=== PATIENT | male | born 1980 | race Caucasian/White ===

== ENCOUNTER → 2018-05-24 18:57 | Outpatient (CLI) | payer BC, SELFPAY ==
[2018-05-24 19:47] LABS: Amphetamine/Metha Screen,Urine Negative ng/mL (<1000); Barbiturates Screen,Urine Negative ng/mL (<200); Benzodiazepines Screen,Urine Negative ng/mL (<200); Cannabinoid Screen,Urine Negative ng/mL (<50); Cocaine Screen,Urine Negative ng/mL (<300); Methadone Screen,Urine Negative ng/mL (<300); Opiate Screen,Urine Positive ng/mL (<300); Phencyclidine Screen,Urine Negative ng/mL (<25)
== END ==
PROVIDERS: Visit Provider Nurse Practitioner Family
DX: Z79.899 Other long term (current) drug therapy (principal)
CPT/HCPCS: 80305

== ENCOUNTER → 2018-06-14 14:03 | Outpatient (CLI) | payer OTHER, BC, SELFPAY ==
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
== END ==
PROVIDERS: PCP Nurse Practitioner Family; Visit Provider Nurse Practitioner Family
DX: M54.6 Pain in thoracic spine (principal); M54.5 Low back pain; V89.2XXA Person injured in unspecified motor-vehicle accident, traffic, initial encounter
CPT/HCPCS: 72148; 76376

== ENCOUNTER 2018-09-02 15:30 | Outpatient (RCR) | payer BC, SELFPAY | END 2018-09-02 15:35 | disposition home or self-care (01) | LOC: PT 15:30 | PROVIDERS: Visit Provider Registered Nurse Critical Care Medicine | DX: S32.009A Unspecified fracture of unspecified lumbar vertebra, initial encounter for closed fracture (principal) | CPT/HCPCS: 97010; 97014; 97110; 97163; G0283 ==

== ENCOUNTER → 2018-09-06 13:16 | Outpatient (CLI) | payer BC, SELFPAY ==
[2018-09-06 14:22] LABS: Alanine Aminotransferase 36 U/L (12-78); Albumin/Globulin Ratio 1.2 (1.1-1.8); Alkaline Phosphatase 65 U/L (46-116); Anion Gap 14.9 mEq/L (5-15); Aspartate Amino Transferase 30 U/L (15-37); Bilirubin,Total 0.5 mg/dL (0.2-1.0); Blood Urea Nitrogen 17 mg/dL (7-18); Calcium 9.3 mg/dL (8.5-10.1); Carbon Dioxide 28 mmol/L (21.0-32.0); Chloride 105 mmol/L (98-107); Creatinine,Serum 1.11 mg/dL (0.70-1.30); Estimated Glomerular Filt Rate 74 ml/min (>60); GFR (African American) 90 ML/MIN (>60); Globulin 3.4 gm/dl (1.3-3.2); Glucose 101 mg/dL (74-106); Potassium 4.9 mmoL/L (3.5-5.1); Sodium 143 mmol/L (136-145); Total Protein,Serum 7.4 gm/dL (6.4-8.2)
[2018-09-06 14:43] LABS: Basophils % 0.5 % (0.1-2.0); Eosinophils # 0.1 K/mm3 (0.0-0.4); Hematocrit 45.5 % (42.0-52.0); Hemoglobin 15.2 g/dL (14.1-18.0); Lymphocytes # 2.8 K/mm3 (0.7-4.5); Lymphocytes % 32.8 % (10-50); Mean Corpuscular HGB Conc 33.4 g/dL (31.8-35.4); Mean Corpuscular Hemoglobin 30.9 pg (27.0-31.2); Mean Corpuscular Volume 92.3 fl (80-94); Mean Platelet Volume 7.6 fl (7.4-10.4); Monocytes # 0.5 K/mm3 (0.1-1.0); Monocytes % 6.1 % (1.7-9.3); Neutrophils # 5.1 K/mm3 (1.8-7.8); Neutrophils % 59.6 % (37.0-80.0); Platelet Count 316 K/mm3 (142-424); Red Blood Count 4.93 M/mm3 (4.60-6.20); Red Cell Distribution Width 13.8 % (11.5-17.5); White Blood Count 8.6 K/mm3 (4.8-10.8)
== END ==
PROVIDERS: Visit Provider Nurse Practitioner Acute Care
DX: B19.20 Unspecified viral hepatitis C without hepatic coma (principal); Z79.899 Other long term (current) drug therapy
CPT/HCPCS: 36415; 80053; 85025; 87522

== ENCOUNTER → 2018-10-09 15:02 | Outpatient (CLI) | payer BC, SELFPAY ==
[2018-10-09 15:25] LABS: Basophils # 0.1 K/mm3 (0-0.2); Basophils % 0.6 % (0.1-2.0); Eosinophils # 0.2 K/mm3 (0.0-0.4); Eosinophils % 1.9 % (0.1-12.0); Hematocrit 47.8 % (42.0-52.0); Hemoglobin 16.1 g/dL (14.1-18.0); Lymphocytes % 34.6 % (10-50); Mean Corpuscular HGB Conc 33.6 g/dL (31.8-35.4); Mean Corpuscular Hemoglobin 31.1 pg (27.0-31.2); Mean Corpuscular Volume 92.6 fl (80-94); Mean Platelet Volume 7.3 fl (7.4-10.4); Monocytes # 0.6 K/mm3 (0.1-1.0); Monocytes % 6.7 % (1.7-9.3); Neutrophils # 4.8 K/mm3 (1.8-7.8); Neutrophils % 56.1 % (37.0-80.0); Platelet Count 345 K/mm3 (142-424); Red Blood Count 5.17 M/mm3 (4.60-6.20); Red Cell Distribution Width 12.9 % (11.5-17.5); White Blood Count 8.6 K/mm3 (4.8-10.8)
[2018-10-09 15:32] LABS: INR 0.97 (0.9-1.1)
[2018-10-09 18:53] LABS: Alanine Aminotransferase 25 U/L (12-78); Albumin Level 4.3 gm/dL (3.4-5.0); Albumin/Globulin Ratio 1.2 (1.1-1.8); Alkaline Phosphatase 67 U/L (46-116); Anion Gap 8.9 mEq/L (5-15); Aspartate Amino Transferase 16 U/L (15-37); Bilirubin,Total 0.4 mg/dL (0.2-1.0); Blood Urea Nitrogen 17 mg/dL (7-18); Calcium 8.9 mg/dL (8.5-10.1); Carbon Dioxide 29 mmol/L (21.0-32.0); Chloride 102 mmol/L (98-107); Creatinine,Serum 1.07 mg/dL (0.70-1.30); Estimated Glomerular Filt Rate 77 ml/min (>60); GFR (African American) 94 ML/MIN (>60); Globulin 3.5 gm/dl (1.3-3.2); Glucose 133 mg/dL (74-106); Potassium 3.9 mmoL/L (3.5-5.1); Sodium 136 mmol/L (136-145); Total Protein,Serum 7.8 gm/dL (6.4-8.2)
[2018-10-12 14:08] LABS: HCV Genotype Charge YES
== END ==
PROVIDERS: Visit Provider Nurse Practitioner Acute Care
DX: B19.20 Unspecified viral hepatitis C without hepatic coma (principal); Z79.899 Other long term (current) drug therapy
CPT/HCPCS: 36415; 80053; 85025; 85610; 87522; 87902

== ENCOUNTER → 2018-11-25 15:08 | Outpatient (CLI) | payer BC, SELFPAY ==
--- NOTE | 2018-11-25 15:16 | XR_ITS ---
XR chest 2V HISTORY: ITS.REASON: cough ORDERING PHYSICIAN: Kelli Olguin APRN PATIENT AGE: 38 years COMPARISON: None FINDINGS: The cardiomediastinal silhouette and pulmonary vascularity are within normal limits. There is a 2 mm benign calcified granuloma in the left upper lobe. The remainder of the lung maldonado are clear.. Lateral view shows compression deformities with anterior wedging at T12, L1 and L2 levels. This is mild although somewhat moderate at the L1 level. There is no evidence of osseous vertebral canal encroachment. Bone density is relatively normal.. IMPRESSION: No acute lung process. Anterior wedge deformities at the thoracolumbar junction as discussed above.
[2018-11-25 16:22] LABS: Monoscreen (Rapid) Negative (Negative)
[2018-11-25 17:42] LABS: Chol/HDL Ratio 4.3 (1-3.5); Cholesterol 299 mg/dL (140-200); Free T4 (Free Thyroxine) 0.99 ng/dl (0.76-1.46); HDL Cholesterol 69 mg/dL (27-67); LDL Cholesterol 192 mg/dL (0-130); Thyroid Stimulating Hormone 1.77 uIU/ml (0.358-3.740); Triglycerides 188 mg/dL (30-200); VLDL Cholesterol 38 mg/dL (0-40)
[2018-11-25 18:17] LABS: Hemoglobin A1C 5.8 % (0.0-7.0)
[2018-11-27 17:45] LABS: Vitamin D 25 Hydroxy 33.6 ng/mL (30.0-100.0)
== END ==
PROVIDERS: PCP Nurse Practitioner Family; Visit Provider Nurse Practitioner Family
DX: F17.200 Nicotine dependence, unspecified, uncomplicated (principal); R53.1 Weakness; R53.83 Other fatigue; R73.9 Hyperglycemia, unspecified
CPT/HCPCS: 36415; 71046; 80061; 82652; 83036; 84439; 84443; 84481; 86318

== ENCOUNTER → 2018-12-31 15:20 | Outpatient (CLI) | payer BC, SELFPAY ==
[2018-12-31 16:18] LABS: Basophils # 0.1 K/mm3 (0-0.2); Basophils % 0.7 % (0.1-2.0); Eosinophils # 0.1 K/mm3 (0.0-0.4); Eosinophils % 1.3 % (0.1-12.0); Hematocrit 44.1 % (42.0-52.0); Hemoglobin 14.2 g/dL (14.1-18.0); Lymphocytes # 2.5 K/mm3 (0.7-4.5); Lymphocytes % 29.8 % (10-50); Mean Corpuscular HGB Conc 32.2 g/dL (31.8-35.4); Mean Corpuscular Hemoglobin 31.2 pg (27.0-31.2); Mean Corpuscular Volume 96.9 fl (80-94); Mean Platelet Volume 7.1 fl (7.4-10.4); Monocytes # 0.5 K/mm3 (0.1-1.0); Monocytes % 5.7 % (1.7-9.3); Neutrophils # 5.2 K/mm3 (1.8-7.8); Neutrophils % 62.4 % (37.0-80.0); Platelet Count 371 K/mm3 (142-424); Red Blood Count 4.55 M/mm3 (4.60-6.20); Red Cell Distribution Width 14.7 % (11.5-17.5); White Blood Count 8.4 K/mm3 (4.8-10.8)
[2018-12-31 18:49] LABS: Alanine Aminotransferase 33 U/L (12-78); Albumin/Globulin Ratio 1.3 (1.1-1.8); Alkaline Phosphatase 62 U/L (46-116); Anion Gap 14.9 mEq/L (5-15); Aspartate Amino Transferase 23 U/L (15-37); Bilirubin,Total 0.6 mg/dL (0.2-1.0); Blood Urea Nitrogen 9 mg/dL (7-18); Calcium 9.2 mg/dL (8.5-10.1); Carbon Dioxide 26 mmol/L (21.0-32.0); Chloride 106 mmol/L (98-107); Creatinine,Serum 1.04 mg/dL (0.70-1.30); Estimated Glomerular Filt Rate 80 ml/min (>60); GFR (African American) 97 ML/MIN (>60); Globulin 3.2 gm/dl (1.3-3.2); Glucose 87 mg/dL (74-106); Potassium 4.9 mmoL/L (3.5-5.1); Sodium 142 mmol/L (136-145); Total Protein,Serum 7.2 gm/dL (6.4-8.2)
== END ==
PROVIDERS: Visit Provider Nurse Practitioner Acute Care
DX: B19.20 Unspecified viral hepatitis C without hepatic coma (principal); Z79.899 Other long term (current) drug therapy
CPT/HCPCS: 36415; 80053; 85025; 87522

== ENCOUNTER → 2020-06-23 14:38 | Outpatient (CLI) | payer BC, SELFPAY ==
[2020-06-23 16:28] LABS: Basophils # 0.1 K/mm3 (0-0.2); Basophils % 0.7 % (0.1-2.0); Eosinophils # 0.2 K/mm3 (0.0-0.4); Eosinophils % 1.9 % (0.1-12.0); Hemoglobin 15.3 g/dL (14.1-18.0); Lymphocytes # 3.2 K/mm3 (0.7-4.5); Lymphocytes % 31.3 % (10-50); Mean Corpuscular HGB Conc 33.3 g/dL (31.8-35.4); Mean Corpuscular Hemoglobin 30.2 pg (27.0-31.2); Mean Corpuscular Volume 90.5 fl (80-94); Mean Platelet Volume 7.7 fl (7.4-10.4); Monocytes # 0.5 K/mm3 (0.1-1.0); Monocytes % 5.3 % (1.7-9.3); Neutrophils # 6.2 K/mm3 (1.8-7.8); Neutrophils % 60.9 % (37.0-80.0); Platelet Count 381 K/mm3 (142-424); Red Blood Count 5.08 M/mm3 (4.60-6.20); Red Cell Distribution Width 13.9 % (11.5-17.5); White Blood Count 10.2 K/mm3 (4.8-10.8)
[2020-06-23 16:52] LABS: Alanine Aminotransferase 62 U/L (12-78); Albumin Level 4.7 g/dl (3.5-5.0); Albumin/Globulin Ratio 1.5 (1.1-1.8); Alkaline Phosphatase 68 U/L (38-126); Anion Gap 12.7 mEq/L (5-15); Aspartate Amino Transferase 48 U/L (17-59); Bilirubin,Total 0.5 mg/dl (0.2-1.3); Blood Urea Nitrogen 22 mg/dl (9-20); Calcium 9.8 mg/dl (8.4-10.2); Carbon Dioxide 28 mmol/L (22.0-30.0); Chloride 103 mmol/L (98-107); Estimated Glomerular Filt Rate 83 ml/min (>60); GFR (African American) 100 ML/MIN (>60); Globulin 3.1 g/dL (1.3-3.2); Glucose 91 mg/dl (74-100); Potassium 4.7 mmoL/L (3.5-5.1); Sodium 139 mmol/L (136-145); Total Protein,Serum 7.8 g/dl (6.3-8.2)
[2020-06-23 17:00] LABS: INR 0.96 (0.9-1.1); Prothrombin Time 10.7 seconds (9.4-11.8)
[2020-06-23 17:05] LABS: Barbiturates Screen,Urine Negative ng/ml (<200); Benzodiazepines Screen,Urine Negative ng/ml (<200)
[2020-06-23 17:06] LABS: Amphetamine/Metha Screen,Urine Negative ng/ml (<1000); Methadone Screen,Urine Negative ng/ml (<300)
[2020-06-23 17:07] LABS: Cannabinoid Screen,Urine Negative ng/ml (<50)
[2020-06-23 17:08] LABS: Cocaine Screen,Urine Negative ng/ml (<300); Opiate Screen,Urine Negative ng/ml (<300)
[2020-06-23 17:09] LABS: Phencyclidine Screen,Urine Negative ng/ml (<25)
[2020-06-25 09:54] LABS: Hep A Ab, Total Positive (Negative); Hep B Core Ab, Total Negative (Negative); Hepatitis B Surface Antigen Negative (Negative)
[2020-06-25 11:33] LABS: HIV Screen 4th Generation wRfx Non Reactive (Non Reactive)
[2020-06-25 11:34] LABS: Hep B Surface Ab, Qual Reactive (.); Hepatitis B Core Antibody IgM Negative (Negative)
[2020-06-26 22:11] LABS: Hepatitis C Genotype 2b (.)
[2020-06-29 00:07] LABS: ALT (SGPT) P5P 62 IU/L (0-55); Alpha 2-Macroglobulins, Qn 162 mg/dL (110-276); Apolipoprotein A-1 123 mg/dL (101-178); Bilirubin, Total 0.2 mg/dL (0.0-1.2); Fibrosis Score 0.06 (0.00-0.21); GGT 20 IU/L (0-65); Haptoglobin 185 mg/dL (17-317); Necroinflammat Activity Grade A0-A1 (.); Necroinflammat Activity Score 0.29 (0.00-0.17)
== END ==
PROVIDERS: Visit Provider Nurse Practitioner Acute Care
DX: B19.20 Unspecified viral hepatitis C without hepatic coma (principal)
CPT/HCPCS: 36415; 80053; 80305; 81596; 85025; 85610; 86703; 86704; 86706; 86708; 87340; 87522; 87902; G0432

== ENCOUNTER → 2020-07-08 07:59 | Outpatient (CLI) | payer BC, SELFPAY ==
--- NOTE | 2020-07-08 08:04 | US_ITS ---
PROCEDURE: US LIVER CLINICAL INDICATION: HEPATITIS C COMPARISON: No exams were available for comparison FINDINGS: PANCREAS: Unremarkable. No obvious mass or abnormal fluid collection. No ductal dilatation LIVER: No focal liver lesions demonstrated. Homogeneous echogenicity. No intrahepatic biliary ductal dilatation evident. There is appropriate direction of blood flow within a non dilated portal vein RIGHT KIDNEY: Unremarkable. Normal size and echogenicity. No hydronephrosis GALLBLADDER: There is a small hyperechoic focus in the fundus of the gallbladder at 8 2 mm. This is nonshadowing and could represent a nonshadowing stone or small polyp. A small focus of sludge is also consideration. IMPRESSION: Small hyperechoic focus in the fundus of the gallbladder which could represent a nonshadowing adherent stone or polyp or small area of sludge otherwise negative Dictated by: Julio Cesar Johnson MD 07/08/2020 17:50 Julio Cesar Johnson MD in [place] 07/08/2020 17:50
== END ==
PROVIDERS: PCP Emergency Medicine; Visit Provider Nurse Practitioner Acute Care
DX: B19.20 Unspecified viral hepatitis C without hepatic coma (principal)
CPT/HCPCS: 76705

== ENCOUNTER → 2020-08-27 12:31 | Outpatient (CLI) | payer BC, SELFPAY ==
[2020-08-27 12:57] LABS: Basophils % 0.4 % (0.1-2.0); Eosinophils # 0.1 K/mm3 (0.0-0.4); Eosinophils % 1.1 % (0.1-12.0); Hematocrit 44.6 % (42.0-52.0); Hemoglobin 14.9 g/dL (14.1-18.0); Lymphocytes # 2.7 K/mm3 (0.7-4.5); Lymphocytes % 26.3 % (10-50); Mean Corpuscular HGB Conc 33.3 g/dL (31.8-35.4); Mean Corpuscular Hemoglobin 30.5 pg (27.0-31.2); Mean Corpuscular Volume 91.6 fl (80-94); Mean Platelet Volume 7.7 fl (7.4-10.4); Monocytes # 0.4 K/mm3 (0.1-1.0); Monocytes % 3.8 % (1.7-9.3); Neutrophils % 68.3 % (37.0-80.0); Platelet Count 397 K/mm3 (142-424); Red Blood Count 4.87 M/mm3 (4.60-6.20); Red Cell Distribution Width 13.5 % (11.5-17.5); White Blood Count 10.2 K/mm3 (4.8-10.8)
[2020-08-27 13:45] LABS: INR 0.93 (0.9-1.1)
[2020-08-27 13:52] LABS: Alanine Aminotransferase 18 U/L (12-78); Albumin Level 4.7 g/dl (3.5-5.0); Alkaline Phosphatase 55 U/L (38-126); Anion Gap 13.4 mEq/L (5-15); Aspartate Amino Transferase 30 U/L (17-59); Bilirubin,Total 0.4 mg/dl (0.2-1.3); Blood Urea Nitrogen 17 mg/dl (9-20); Calcium 9.5 mg/dl (8.4-10.2); Carbon Dioxide 25 mmol/L (22.0-30.0); Chloride 105 mmol/L (98-107); Estimated Glomerular Filt Rate 107 ml/min (>60); GFR (African American) 130 ML/MIN (>60); Globulin 2.4 g/dL (1.3-3.2); Glucose 103 mg/dl (74-100); Potassium 4.4 mmoL/L (3.5-5.1); Sodium 139 mmol/L (136-145); Total Protein,Serum 7.1 g/dl (6.3-8.2)
== END ==
PROVIDERS: Visit Provider Nurse Practitioner Acute Care
DX: B19.20 Unspecified viral hepatitis C without hepatic coma (principal)
CPT/HCPCS: 36415; 80053; 85025; 85610; 87522

== ENCOUNTER 2020-12-20 04:04 | Emergency (ER) | payer BC, SELFPAY ==
[2020-12-20] VITALS (10 sets, daily range): BP systolic 93–119; BP diastolic 56–75; PULSE 71–114; RESP 13–24; TEMP 36.6; O2SAT 96–100; BMI 23.6
--- NOTE | 2020-12-20 04:02 | ECG_ITS ---
APPROVED REPORT Exam: Resting ECG HR:118 bpm ECG Measurements Heart Rate [address] 126 P 64 QRSd 80 QRS 65 QT 340 T 49 QTc 476 Conclusion Sinus tachycardia STTW changes - ? rate effct Abnormal ECG Electronically signed by : Duane Curry, 12/20/2020 22:10:31
--- NOTE | 2020-12-20 04:10 | XR_ITS ---
PROCEDURE INFORMATION: Exam: XR Chest Exam date and time: 12/20/2020 4:10 AM Age: 40 years old Clinical indication: Other: Overdose TECHNIQUE: Imaging protocol: XR of the chest. Views: 2 views. COMPARISON: CR (CHEST PA, CHEST, CHEST PA) 11/25/2018 3:18 PM FINDINGS: Lungs: Unremarkable. No consolidation. Pleural spaces: Unremarkable. No pleural effusion. No pneumothorax. Heart/Mediastinum: Unremarkable. No cardiomegaly. Bones/joints: Unremarkable. IMPRESSION: No acute findings.
--- NOTE | 2020-12-20 04:47 | PC.NURSE ---
Pt is restroom for an extended period of time. chest xray and v/s delayed. checked on pt periodically.
--- NOTE | 2020-12-20 04:51 | PC.NURSE ---
pt to rad.
[2020-12-20 04:55] LABS: Alanine Aminotransferase 27 U/L (12-78); Albumin Level 4.9 g/dl (3.5-5.0); Albumin/Globulin Ratio 1.8 (1.1-1.8); Alkaline Phosphatase 65 U/L (38-126); Anion Gap 19.6 mEq/L (5-15); Aspartate Amino Transferase 43 U/L (17-59); Bilirubin,Total 0.9 mg/dl (0.2-1.3); Blood Urea Nitrogen 18 mg/dl (9-20); Calcium 9.6 mg/dl (8.4-10.2); Carbon Dioxide 23 mmol/L (22.0-30.0); Chloride 101 mmol/L (98-107); Creatinine Clearance Estimated 74 mL/min (50-200); Estimated Glomerular Filt Rate 56 ml/min (>60); GFR (African American) 68 ML/MIN (>60); Globulin 2.8 g/dL (1.3-3.2); Glucose 157 mg/dl (74-100); Potassium 3.6 mmoL/L (3.5-5.1); Sodium 140 mmol/L (136-145); Total Protein,Serum 7.7 g/dl (6.3-8.2)
--- NOTE | 2020-12-20 04:55 | PC.NURSE ---
pt returned from rad
[2020-12-20 05:02] LABS: Basophils # 0.1 K/mm3 (0-0.2); Eosinophils # 0.1 K/mm3 (0.0-0.4); Eosinophils % 0.5 % (0.1-12.0); Lymphocytes # 3.1 K/mm3 (0.7-4.5); Monocytes # 0.4 K/mm3 (0.1-1.0); Neutrophils # 12.3 K/mm3 (1.8-7.8); White Blood Count 15.9 K/mm3 (4.8-10.8)
[2020-12-20 05:06] LABS: Acetaminophen < 10 ug/ml (10-30); Ethyl Alcohol < 10 mg/dl (0-10); Salicylate < 1.0 mg/dL (2.0-20.0)
[2020-12-20 05:07] LABS: Basophils % 0.9 % (0.1-2.0); Hematocrit 57.7 % (42.0-52.0); Hemoglobin 19.2 g/dL (14.1-18.0); Lymphocytes % 19.4 % (10-50); Mean Corpuscular HGB Conc 33.3 g/dL (31.8-35.4); Mean Corpuscular Hemoglobin 31.1 pg (27.0-31.2); Mean Corpuscular Volume 93.2 fl (80-94); Monocytes % 2.2 % (1.7-9.3); Platelet Count 337 K/mm3 (142-424); Red Blood Count 6.19 M/mm3 (4.60-6.20); Red Cell Distribution Width 13.5 % (11.5-17.5)
[2020-12-20 05:08] LABS: MANUAL DIFFERENTIAL MANUAL DIFFERENTIAL (MANUAL DIFF)
[2020-12-20 05:16] LABS: Troponin I 0.03 ng/ml (0.00-0.034)
[2020-12-20 05:22] LABS: Procalcitonin 0.482 ng/mL (0.0-2.0)
[2020-12-20 05:27] LABS: Lymphocytes % 20 % (10-50); Monocytes % 3 % (2-9); Neutrophils % 76 % (42-76); Platelet Estimate Normal; Spherocytes 3+; Total Cells Counted 100
[2020-12-20 05:33] LABS: Erythrocyte Sedimentation Rate 3 mm/hr (0-15)
[2020-12-20 05:43] LABS: Lactic Acid 3.5 mmol/L (0.7-2.1)
--- NOTE | 2020-12-20 06:44 | HMH.EDOD ---
ED Disposition Condition on Discharge: Good - Critical Care Critical Care Time: No <Esau Cazares S - Last Filed: 12/20/20 08:08> <Manfred Mccormick - Last Filed: 12/20/20 08:54> Clinical Impression: IVDU (intravenous drug user) Dyspnea Qualifiers: Dyspnea type: shortness of breath Qualified Code(s): R06.02 - Shortness of breath Disposition: Home, Self-Care Instructions: DI for Drug Overdose in Adults Referrals: Provider,Referral, MD [Primary Care Provider] - Attestation: On 12/20/20, the high probability of a clinically significant, sudden or life threatening deterioration of the following system(s) required my full and direct attention, intervention and personal management. The time I documented below is in addition to time spent performing reported procedures but includes the following listed in this critical care notation. Medical Decision Making - Medical Records Medical records reviewed: Yes: I reviewed the patient's medical records. - Maurisio Inquiry Pt receiving controlled substance: No - Lab Data Lab results reviewed: Yes: I reviewed the patient's lab results. Result diagrams: 12/20/20 04:30 12/20/20 04:30 - Radiology Data #1 Image(s): Chest Image Reviewed: Yes I reviewed the patient's radiology image Preliminary Findings: Normal/NAD - ECG Data Tracing #1 Normal Sinus Rhythm: Yes Ischemic changes: non-specific ST-T wave changes <Esau Cazares - Last Filed: 12/20/20 08:08> - Lab Data Result diagrams: 12/20/20 04:30 12/20/20 04:30 <Manfred Mccormick - Last Filed: 12/20/20 08:54> Vital Signs: 12/20/20 04:05 12/20/20 04:12 12/20/20 05:04 Temperature 97.9 F Temperature Source Oral Pulse Rate 107 H 107 H Pulse Rate [Right] 114 H Respiratory Rate 17 24 15 Blood Pressure 93/56 L 109/70 L Blood Pressure [Right Arm] 93/56 L Blood Pressure Mean Blood Pressure Mean [Right Arm] 68 Blood Pressure Source [Right Arm] Automatic Cuff 02 Sat by Pulse Oximetry 96 97 100 Oxygen Delivery Method Room Air 12/20/20 05:30 12/20/20 06:00 12/20/20 06:30 Temperature Temperature Source Pulse Rate 98 H 96 H 91 H Pulse Rate [Right] Respiratory Rate 17 24 22 Blood Pressure 115/70 118/69 114/70 Blood Pressure [Right Arm] Blood Pressure Mean 86 Blood Pressure Mean [Right Arm] Blood Pressure Source [Right Arm] 02 Sat by Pulse Oximetry 98 96 Oxygen Delivery Method - Lab Data Lab Results 12/20/20 04:30: WBC 15.9 H, RBC 6.19, Hgb 19.2 H*, Hct 57.7 H, MCV 93.2, MCH 31.1, MCHC 33.3, RDW 13.5, Plt Count 337, MPV 8.0, Neut % (Auto) 77.0, Lymph % (Auto) 19.4, Dolores % (Auto) 2.2, Eos % (Auto) 0.5, Baso % (Auto) 0.9, Neut # (Auto) 12.3 H, Lymph # (Auto) 3.1, Dolores # (Auto) 0.4, Eos # (Auto) 0.1, Baso # (Auto) 0.1, Total Counted 100, Neutrophils % (Manual) 76, Band Neutrophils % 1.0, Lymphocytes % (Manual) 20, Monocytes % (Manual) 3, Platelet Estimate Normal, Spherocytes 3+, ESR 3 12/20/20 04:30: Sodium 140, Potassium 3.6, Chloride 101, Carbon Dioxide 23, Anion Gap 19.6 H, BUN 18, Creatinine 1.40 H, Estimated Creat Clear 74, Estimated GFR 56 L, Est GFR ( Amer) 68, Glucose 157 H, Calcium 9.6, Total Bilirubin 0.9, AST 43, ALT 27, Alkaline Phosphatase 65, Total Protein 7.7, Albumin 4.9, Globulin 2.8, Albumin/Globulin Ratio 1.8 12/20/20 04:30: Troponin I 0.03, Salicylates < 1.0 L, Acetaminophen < 10 L 12/20/20 04:30: Plasma/Serum Alcohol < 10 12/20/20 04:30: Procalcitonin 0.482 12/20/20 05:05: Lactate 3.5 H 12/20/20 : SARS-CoV-2 (PCR) Not detected, Influenza A Untype (PCR) Not detected, Influenza Type B (PCR) Not detected Orders (Tests/Meds): ED MEDICATIONS Discontinued Medications Generic Name Dose Route Start Last Admin Trade Name Freq PRN Reason Stop Dose Admin Sodium Chloride 1,000 mls @ 999 mls/hr 12/20/20 05:00 12/20/20 04:50 Sod Chlor 0.9% 1000ml Bag IV 12/20/20 06:00 999 mls/hr .Q1H1M SAMUEL Administration Sodium Chlori
--- NOTE | 2020-12-20 06:45 | CT_ITS ---
PROCEDURE INFORMATION: Exam: CTA Chest With Contrast Exam date and time: 12/20/2020 6:45 AM Age: 40 years old Clinical indication: Pain; On breathing; Additional info: SOA post ivdu TECHNIQUE: Imaging protocol: Computed tomographic angiography of the chest with contrast. 3D rendering (Not supervised by radiologist): MIP and/or 3D reconstructed images were created by the technologist. Radiation optimization: All CT scans at this facility use at least one of these dose optimization techniques: automated exposure control; mA and/or kV adjustment per patient size (includes targeted exams where dose is matched to clinical indication); or iterative reconstruction. Contrast material: ISOVUE; Contrast volume: 75 ml; Contrast route: INTRAVENOUS (IV); COMPARISON: CR XR CHEST 2V 12/20/2020 4:44 AM FINDINGS: Pulmonary arteries: There is no convincing evidence of a pulmonary embolus. Aorta: There is no aortic aneurysm or dissection. Lungs: There is mild dependent atelectasis but no lobar consolidation. The central airway is clear. Pleural spaces: Unremarkable. No pneumothorax. No pleural effusion. Heart: The cardiac chambers are normal in size but there is a trace pericardial effusion. Lymph nodes: There are a few tiny calcified lymph nodes in the left hilum and there is a small calcified left upper lobe pulmonary nodule consistent with remote granulomatous disease. Liver: Mild hepatic steatosis. Bones/joints: No acute findings seen in the upper abdomen. The bones are grossly intact. Soft tissues: Unremarkable. IMPRESSION: 1. No convincing evidence of a significant pulmonary embolus. 2. Trace pericardial effusion. 3. Hepatic steatosis.
--- NOTE | 2020-12-20 07:02 | PC.NURSE ---
PT TO CT SCAN
--- NOTE | 2020-12-20 07:04 | PC.NURSE ---
pt to rad.
--- NOTE | 2020-12-20 07:31 | CA_ITS ---
APPROVED REPORT EXAM: Comprehensive 2D, Doppler, and color-flow Echocardiogram Erp Consultant: Felicia Fernandes RVT Ht: 5 ft 10 in Wt: 165lbs BSA: 1.92 BP: 114/70 mmHg Indications: OD,IV DRUG USE(METH),SOA,SMOKER 2D Dimensions LVOT 2.06 cm (M/F) 1.5-2.5 LA Volume 27.70 mL LA Volume Index 14.42 mL/m2 (M/F) 16-34 M-Mode Dimensions RVDd 3.33 cm (0.9-2.6) LA Diam 3.07 cm (1.9-4.0) LVDd 4.18 cm (3.5-5.7) Ao Diam 3.41 cm (2.0-3.7) LVDs 2.97 cm (3.5-5.7) IVSd 1.39 cm (0.6-1.1) PWd 0.68 cm (0.6-1.1) EF (Teich) 56.00% FS 28.90% EDV (Teich) 77.70 mL TAPSE 2.14 (<1.7) ESV (Teich) 34.20 mL LV Diastology E Decel Time 190.00 (160-240 msec) E/A Ratio 0.7 MED E' 10.80 (< 7 cm/sec) E'/MED E' Ratio 4.23 (>14) LAT E' 11.30 (<10 cm/sec) E/LAT E' Ratio 4.04 (>14) Aortic Valve AO Peak GR. 3.20 mmHg Mitral Valve MV E Max Damon. 46.00 (40-130 cm/s) MV A Velocity 63.00 (40-130 cm/s) E/A Ratio 0.73 MV Decel. Time 190.00 (160-240 ms) MV PHT 56.00 ms Pulmonary Valve PV Peak Velocity 85.00 (50-150 cm/s) Tricuspid Valve TR P. Velocity 215.00 cm/s RAP Estimate 10.00 mmHg RVSP 28.50 mmHg Left Ventricle Left atrium is mildly enlarged, left ventricle is normal size, there is no concentric left ventricular hypertrophy, visually estimated ejection fraction 55% with no regional wall motion abnormality, Doppler evidence of impaired LV relaxation seen. Tissue Doppler is inconclusive Right Ventricle Right atrium and right ventricle is mildly enlarged with normal contractility. Aortic Valve Aortic valve is minimally thickened and fibrosed there is no aortic stenosis or aortic insufficiency. Mitral Valve Mitral valve grossly normal, there is trace mitral regurgitation. Tricuspid Valve Tricuspid valve grossly normal, there is trace tricuspid regurgitation, tricuspid regurgitation jet velocity is inadequate for calculation of the right ventricular systolic pressure. Pulmonic Valve Pulmonic valve is poorly visualized. Great Vessels Aortic root is normal size. Pericardium No significant pericardial effusion noted. Conclusion 1. Mild biatrial enlargement, normal left ventricular size, visually estimated ejection fraction 55% with no regional wall motion abnormality, Doppler evidence of impaired LV relaxation seen. 2. Mildly enlarged right ventricle with normal contractility. 3. Trace mitral and tricuspid regurgitation. 4. No significant pericardial effusion noted. Electronically signed by : Jacob Cody, 12/20/2020 08:44:39
--- NOTE | 2020-12-20 07:33 | PC.NURSE ---
notified CV lab of echo, spoke with miguel
[2020-12-20 07:36] LABS: Coronavirus 19, PCR Not Detected (NotDetected); Influenza A, PCR Not Detected (NotDetected); Influenza B, PCR Not Detected (NotDetected)
--- NOTE | 2020-12-20 07:43 | PC.NURSE ---
CV lab staff at for echo
[2020-12-20 08:52] LABS: Troponin I 0.15 ng/ml (0.00-0.034)
--- NOTE | 2020-12-20 09:01 | PC.NURSE ---
pt being D/C with brother and mother , they have arranged pt to go straight to [facility]
[2020-12-20 09:34] LABS: Reflex Lactic Add Lactic Reflex
== END 2020-12-20 09:18 | disposition home or self-care (01) ==
PROVIDERS: Emergency Medicine; Emergency Provider Student in an Organized Health Care Education/Training Program
DX: T43.621A Poisoning by amphetamines, accidental (unintentional), initial encounter (principal); R06.02 Shortness of breath; Y92.019 Unspecified place in single-family (private) house as the place of occurrence of the external cause; Z88.0 Allergy status to penicillin; Z88.2 Allergy status to sulfonamides; F17.210 Nicotine dependence, cigarettes, uncomplicated
CPT/HCPCS: 36415; 71046; 71275; 80053; 80329; 83605; 84145; 84484; 85007; 85025; 85651; 87040; 93005; 93306; 96365; 96366; 99284; Q9967; U0003

== ENCOUNTER 2023-10-22 13:31 | Outpatient (CLI) | payer BC, SELFPAY ==
[2023-10-22 20:42] LABS: Basophils % 0.6 % (0.1-2.0); Eosinophils % 0.4 % (0.1-12.0); Hematocrit 46.8 % (42.0-52.0); Lymphocytes # 0.7 K/mm3 (0.7-4.5); Lymphocytes % 12.7 % (10-50); Mean Corpuscular HGB Conc 32.1 g/dL (31.8-35.4); Mean Corpuscular Hemoglobin 29.6 pg (27.0-31.2); Mean Corpuscular Volume 92.1 fl (80-94); Mean Platelet Volume 8.9 fl (7.4-10.4); Monocytes # 0.4 K/mm3 (0.1-1.0); Monocytes % 6.9 % (1.7-9.3); Neutrophils # 4.3 K/mm3 (1.8-7.8); Neutrophils % 79.6 % (37.0-80.0); Platelet Count 254 K/mm3 (142-424); Red Blood Count 5.09 M/mm3 (4.60-6.20); Red Cell Distribution Width 13.8 % (11.5-17.5); White Blood Count 5.4 K/mm3 (4.8-10.8)
[2023-10-22 21:10] LABS: Alanine Aminotransferase 136 U/L (12-78); Albumin/Globulin Ratio 1.5 (1.1-1.8); Alkaline Phosphatase 134 U/L (38-126); Anion Gap 14.8 mEq/L (5-15); Aspartate Amino Transferase 181 U/L (17-59); Bilirubin,Total 0.9 mg/dl (0.2-1.3); Blood Urea Nitrogen 14 mg/dl (9-20); Carbon Dioxide 24 mmol/L (22.0-30.0); Chloride 102 mmol/L (98-107); Chol/HDL Ratio 3.8 (1-3.5); Cholesterol 192 mg/dl (140-200); Estimated Glomerular Filt Rate 66 ml/min (>60); GFR (African American) 80 ML/MIN (>60); Globulin 2.6 g/dL (1.3-3.2); Glucose 84 mg/dl (74-100); HDL Cholesterol 51 mg/dl (40-60); Potassium 3.8 mmoL/L (3.5-5.1); Sodium 137 mmol/L (136-145); Total Protein,Serum 6.6 g/dl (6.3-8.2); Triglycerides 142 mg/dl (30-150); VLDL Cholesterol 28 mg/dL (0-40)
[2023-10-22 21:30] LABS: 25-OH Vitamin D, Total 43.6 ng/mL (30-100)
[2023-10-22 21:42] LABS: Thyroid Stimulating Hormone 2.39 uIU/mL (0.465-4.68)
[2023-10-26 21:52] LABS: HBsAg Screen Negative (Negative); HCV Ab Reactive (Non Reactive); Hep A Ab, IGM Negative (Negative); Hep B Core Ab, IgM Negative (Negative)
== END 2023-10-22 23:59 | disposition home or self-care (01) ==
LOC: LAB.DROPOF 10-23 13:32
PROVIDERS: Visit Provider Family Medicine
DX: R53.83 Other fatigue (principal); R74.8 Abnormal levels of other serum enzymes; K75.2 Nonspecific reactive hepatitis; Z79.899 Other long term (current) drug therapy
CPT/HCPCS: 80053; 80061; 80074; 82306; 84443; 85025

== ENCOUNTER 2023-11-22 10:53 | Outpatient (CLI) | payer BC, SELFPAY ==
--- NOTE | 2023-11-22 10:54 | US_ITS ---
FINAL REPORT CLINICAL HISTORY: elevated liver enzymes FINDINGS: RIGHT UPPER QUADRANT ULTRASOUND Sonographic images of the right upper quadrant were obtained. The pancreas is partially obscured.The liver has an unremarkable appearance. There is cholelithiasis with multiple gallstones measuring up to 9 mm. There is no evidence of acute gallbladder disease. The common duct is normal. Limited images of the right kidney are normal. IMPRESSION: Cholelithiasis. Reviewed, Interpreted and Dictated by Nichelle Jones MD Transcribed by Linda Ramirez Authenticated and [facility]
== END 2023-11-22 23:59 | disposition home or self-care (01) ==
LOC: RAD 10:54
PROVIDERS: Visit Provider Family Medicine
DX: R74.8 Abnormal levels of other serum enzymes (principal)
CPT/HCPCS: 76705

== ENCOUNTER 2023-12-10 20:22 | Outpatient (CLI) | payer BC, SELFPAY ==
[2023-12-10 21:29] LABS: Alanine Aminotransferase 15 U/L (12-78); Bilirubin,Unconjugated 0.6 mg/dL (0.0-1.1)
[2023-12-10 21:30] LABS: Albumin Level 4.5 g/dl (3.5-5.0); Alkaline Phosphatase 55 U/L (38-126); Aspartate Amino Transferase 26 U/L (17-59); Bilirubin,Indirect 0.6 mg/dL (0.0-0.9); Bilirubin,Total 0.6 mg/dl (0.2-1.3); Total Protein,Serum 7.4 g/dl (6.3-8.2)
[2023-12-12 15:12] LABS: EBV Ab VCA, IgG 65.9 U/mL (0.0-17.9); EBV Ab VCA, IgM <36.0 U/mL (0.0-35.9)
== END 2023-12-10 23:59 | disposition home or self-care (01) ==
LOC: LAB.DROPOF 20:24
PROVIDERS: PCP Family Medicine; Visit Provider Family Medicine
DX: R74.8 Abnormal levels of other serum enzymes (principal); R53.83 Other fatigue
CPT/HCPCS: 80076; 86664; 86665

== ENCOUNTER 2024-11-06 09:50 | Outpatient (RCR) | payer MEDICAID, SELFPAY ==
--- NOTE | 2024-11-06 15:27 | HMH.OTOPEV ---
OT Inpatient Evaluation Rehab OT Outpatient Eval Start: 11/06/24 10:01 Freq: Status: Active Protocol: Document 11/06/24 10:01 MEGHANNIVONNE (Rec: 11/06/24 15:24 MEGHANNIVONNE [id number]) E-signed By Cat Hughes, OT Outpatient Therapy Subjective History Subjective History Pt is a 44 year old male referred to skilled OT for evaluation due to dx of right lateral epicondylitis. He presents today alert and well-oriented, with no complaint of pain. Pt states he is currently unemployed , after several months of performing repetitive job duties. 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 Prior to that he was employed at [employer] for approximately 3 weeks, when symptoms of B elbow pain began. He states he was let go from the job due to having difficulty with job duties. Initially, pain was present in B elbows with left resolving and right increasing. He comments It took me 4 weeks to get in to see a doctor and I am better now. I don't think I need therapy at this point because I can everything I need to. Pt indicated minimal difficulty with functional tasks on the QuickDash; verbally denied functional limitations other than a little twinge of pain every once in a while when reaching. NO report of numbness or tingling. PLOF: Independent with ADL/IADL Current LOF: Independent with ADL/IADL Medical history unremarkable per pt interview. New diagnosis of No cancer in past 12 months? Chief Complaint Pain Symptom Type Sharp Symptoms Relieved By OTC Meds Prior Functional None Limitations Current Functional None Limitations Symptom Description Activity Dependent Level of pain today 0 (0-10) Pain scale - at its 0 best (0-10) Pain scale - at its 4 worst (0-10) Shoulder/Elbow Eval Shoulder Objective Measurements Posture Shoulder Posture Neutral Sitting Position Shoulder Posture Neutral Standing Position Shoulder ROM Right Shoulder Abduction 174 Active Range of Motion (degrees) Shoulder Flexion 175 Active Range of Motion (degrees) Query Text: Shoulder External 88 Rotation Active Range of Motion ( degrees) Shoulder Internal 84 Rotation Active Range of Motion ( degrees) Left Shoulder Abduction 176 Active Range of Motion (degrees) Shoulder Flexion 175 Active Range of Motion (degrees) Query Text: Shoulder External 95 Rotation Active Range of Motion ( degrees) Shoulder Internal 86 Rotation Active Range of Motion ( degrees) Shoulder MMT Right Shoulder Abduction 5 Normal Strength Grade Shoulder Extension 5 Normal Strength Grade Shoulder Flexion 5 Normal Strength Grade Shoulder Horizontal 5 Normal Abduction Strength Grade Shoulder Horizontal 5 Normal Adduction Strength Grade Shoulder External 5 Normal Rotation Strength Grade Shoulder Internal 5 Normal Rotation Strength Grade Left Shoulder Abduction 5 Normal Strength Grade Shoulder Extension 5 Normal Strength Grade Shoulder Flexion 5 Normal Strength Grade Shoulder Horizontal 5 Normal Abduction Strength Grade Shoulder Horizontal 5 Normal Adduction Strength Grade Shoulder External 5 Normal Rotation Strength Grade Shoulder Internal 5 Normal Rotation Strength Grade Elbow Objective Measurements Elbow MMT Bilateral Elbow Flexion 5 Normal Strength Grade Elbow Extension 5 Normal Strength Grade Supination Strength 5 Normal Grade Pronation Strength 5 Normal Grade QuickDASH Activities Please rate your ability to do the following activities in the last week by selecting the number below the appropriate response. 1. Open a tight or Mild difficulty new jar. 2. Do heavy Mild difficulty special needs tutor (e. g., wash robles, floors). 3. Carry a shopping No difficulty bag or briefcase. 4. Wash your back. Mild difficulty 5. Use a knife to Mild difficulty cut food. 6. Recreational Mild difficulty activities in which you take some force or impact through your arm, shoulder, or hand (e.g., golf, hammering, tennis, etc.). 7. During the past Slightly week, to what extent has your arm, shoulder or hand problem interfered with your normal social activities with family, friends , neighbors or groups? 8. During the past Moderately limited week, were you limited in your work or other regular daily activites as a result of your arm, shoulder or hand problem? 9. Arm, shoulder or Mild hand pain. 10. Tingling (pins None and needles) in your arm, shoulder or hand. 11. During the past Moderate difficulty week, how much difficulty have you had sleeping because of the pain in your arm, shoulder or hand? Quick DASH 22 OT Outpatient Assessment Impairments Problems/Impairments Subjective C/O Pain Outpatient Therapy Plan of Care Addendums This patient is a No candidate for social or vocational rehab ? Patient/Guardian Yes verbally acknowledges understanding of treatment program and consents to further treatment? Patient/Guardian Yes verbally acknowledges understanding of diagnosis, prognosis and goals for treatment? PHYSICIAN CERTIFICATION: I certify the specified therapy services for Asa Juárez are required, authorized, and reviewed every 30 days.
== END 2024-11-06 23:59 | disposition home or self-care (01) ==
LOC: OT 09:50
PROVIDERS: Visit Provider Family Medicine
DX: M77.11 Lateral epicondylitis, right elbow (principal)

== ENCOUNTER 2024-11-11 10:59 | Outpatient (CLI) | payer MEDICAID, SELFPAY ==
--- NOTE | 2024-11-11 11:02 | XR_ITS ---
FINAL REPORT TECHNIQUE: Right elbow 3 views CLINICAL HISTORY: right elbow pain COMPARISON: None FINDINGS: RIGHT ELBOW: 3 images of the right elbow were obtained. There is no evidence of fracture or dislocation. The joint spaces are intact. There is no soft tissue abnormality identified. IMPRESSION: No acute bony abnormality. Reviewed, Interpreted and Dictated by Jarrett Gray MD Transcribed by Tamar Zuñiga Authenticated and . [facility]
--- OUTSIDE RECORDS SUMMARY | 2024-11-11 11:03 | XMS_ITS | Encounter Summary ---
Author Organization [facility] Address [address] [place] [address] Care Team Providers Care Supervisor Finishing Department Name Role Phone Unavailable Primary Care Provider Unavailabl e Encounter Details Date Type Department Care Team (Late st Contact Info) Description 03/09/2021 Transcribed Document [facility] [place] [address] ProviderHuber MD [address] [place] [address] [id number] Social History Tobacco Use Types Packs/Day Years Used Date Smoking Tobacco: Never Assessed Sex and Gender Information Value Date Recorded Sex Assigned at Male 11/29/2021 11:59 AM CDT Legal Sex Male 11:59 AM CDT Gender Identity Male 11/29/2021 11:59 AM CDT Sexual Orientation Not on file documented as of this encounter Miscellaneous Notes * [employer]ner Conversion Note - Huber ProviderMD - 03/09/2021 11:43 AM CDT ED Discharge Entered On: 03/09/2021 11:44 EDT Performed On: 03/09/2021 11:43 EDT by Haydee Menard Rn Discharge Process Patient Disposition : Discharge Personal Belongings With Patient : Yes Patient Education Completed : Yes Teaching Evaluation : Verbalizes understanding IV Discontinued : Yes Nursing Documentation Completed : Yes Haydee Menard Rn - 03/09/2021 11:43 EDT ED Discharge Discharge To : Home with ambulatory/outpatient follow-up Mode Of Departure : Ambulatory, Private vehicle Accompanied By : Mother Discharge Instructions Reviewed With, Opportunity For Questions Given : Patient Prescriptions Given to Patient : No Haydee Menard Rn - 03/09/2021 11:43 EDT Electronically signed by Dione, [facility] Conversion Quality Assurance Clerk Cerner at 09/19/2022 11:45 PM CDT documented in this encounter Plan of Treatment Not on file documented as of this encounter Visit Diagnoses Not on filedocumented in this encounter
--- OUTSIDE RECORDS SUMMARY | 2024-11-11 11:03 | XMS_ITS | Clinical Summary ---
Author Organization Healthcare Address [address] [id number] Care Team Providers Care Nuclear Weapons Specialist Name Role Phone Esau Cazares MD Primary Care Provider [phone] Allergies Active Allergy Reactions Criticality Noted Date Comments Azithromycin Unknown - Patient st ates they do not know rxn details Low 08/27/2019 Unknown from childhood Penicillins Unknown - Patient st ates they do not know rxn details Low 08/27/2019 Unknown from childhood Unknown from childhood Sulfa Drugs Unknown - Patient st ates they do not know rxn details Low 08/27/2019 Unknown from childhood Active Problems Problem Noted Date Diagnosed Date Hepatitis C 06/21/2018 Immunizations Immunization Administration Dates Next Due Hep A / Hep B 08/13/2018,07/11/2018 Social History Tobacco Use Types Packs/Day Years Used Date Smoking Tobacco: Every Day Cigarettes Smokeless Tobacco: Never Tobacco Cessation:Ready to Q uit: Not Asked; Counseling Given: Not Answered Alcohol Use Standard Drinks/Week Comments Not Currently 0 (1 standard drink = 0.6 oz pure alcohol) Alcoholic Drinks/day: Former consumption of alcohol Sex and Gender Information Value Date Recorded Sex Assigned at Not on file Legal Sex Male 5:59 PM EDT Gender Identity Not on file Sexual Orientation Not on file Last Filed Vital Signs Vital Sign Reading Time Taken Comments Blood Pressure 165/92 09/13/2022 12:30 AM EDT Pulse 97 09/13/2022 12:30 AM EDT Temperature 36.8 C (98.2 F) 09/13/2022 12:30 AM EDT Respiratory Rate 18 09/13/2022 12:3 0 AM EDT Oxygen Saturation 99% 09/13/2022 12: 30 AM EDT Inhaled Oxygen Concentration - - Weight 72.6 kg (159 lb 15.8 oz) 09/06/2020 1:53 PM EDT Height 177.8 cm (5' 10 ) 09/06/2020 1:53 PM EDT Body Mass Index 22.96 09/06/2020 1:53 PM EDT Plan of Treatment Health Maintenance Due Date Last Done Comments [facility]-Depression Screening 1980 [facility]-Infant/Child/Adol SDOH Screenings 1980 [facility]-Varicella Vaccines (1 of 2 - 13+ 2-dose series) 1993 HPV Vaccines (1 - Male 3-dose series) 1995 [facility]- SDOH Screenings 1998 [facility]-Adult SDOH Screenings 1998 [facility]-Hepatitis B Vaccines (3 of 3 - 19+ 3-dose series) 10/08/2018 08/13/2018, 07/11/2018, 10/22/2014 [facility]-Hepatitis A Vaccines (3 of 3 - Hep A Twinrix risk 3-dose series) 01/13/2019 08/13/2018, 07/11/2018, 10/22/2014 [id number] Vaccine (3 - 2023- season) 2024 05/25/2021, 09/08/2020 [facility]-Influenza Vaccine (Season Ended) 2025 [facility]-Zoster Vaccines (1 of 2) 2030 [facility]-DTaP,Tdap,and Td Vaccines (2 - Td or Tdap) 03/09/2031 03/09/2021 [facility]-HIV Screening Completed 06/21/2018 [facility]-HIB Vaccines Aged Out No longer e ligible based on patient's age to complete this topic [facility]-IPV Vaccines Aged Out No longer e ligible based on patient's age to complete this topic UK[facility]-Pneumococcal Vaccine: Pediatrics (0 to 5 Years) and At-Risk Patients (6 to 49 Years) Aged Out No longer eligible b ased on patient's age to complete this topic [facility]-Rotavirus Vaccines Aged Out No lo nger eligible based on patient's age to complete this topic Procedures Procedure Name Priority Date/Time Associated Diagnosis Comments HIV 1/2 ANTIBODY/ANTIGEN SCREEN WITH REFLEX TO HIV I/II DIFFERENTIATION Routine 06/21/2018 9:45 AM EST from Last 3 Months or Most Recently Relevant to Health Maintenance Results * HIV 1 & 2 Antibody/Antigen Screen (06/21/2018 9:45 AM EST) HIV 1 Result NONREACTIVE Screening for HIV 1 and 2 antibodies is NONREACTIVE. No confirmatory testing is required. SUNQUEST 06/21/2018 9:45 AM EST 06/21/2018 10:40 AM EST us Jean Carlos Curtis PUMP ERECTOR HELPER, DNP LAB BLOOD ORDERABLES F inal Result SUNQUEST from Last 3 Months or Most Recently Relevant to Health Maintenance Care Teams Nuclear Weapons Specialist Relationship Specialty Start Date End Date Esau Cazares MD [address] [place] [address] PCP - General 10/15/20
--- OUTSIDE RECORDS SUMMARY | 2024-11-11 11:03 | XMS_ITS | Encounter Summary ---
Author Organization [employer] Address [address] [place] [address] Care Team Providers Care Messenger Office Name Role Phone Unavailable Primary Care Provider Unavailabl e Encounter Details Date Type Department Care Team (Late st Contact Info) Description 03/09/2021 Transcribed Document [facility] Radiology [address] [place] [address] Saul Alexander MD [address] [place] [address] Dept. [place] [address] Social History Tobacco Use Types Packs/Day Years Used Date Smoking Tobacco: Never Assessed Sex and Gender Information Value Date Recorded Sex Assigned at Male 11/29/2021 11:59 AM CDT Legal Sex Male 11:59 AM CDT Gender Identity Male 11/29/2021 11:59 AM CDT Sexual Orientation Not on file documented as of this encounter Miscellaneous Notes * Cerner Conversion Note - Saul Alexander MD - 03/09/2021 9:45 PM EDT CR Chest 1 Vw Portable Ordered: 03/09/2021 Modified Reason for Exam: pneumonia 03/09/2021 10:22 03/09/2021 20:45 (SAUL ALEXANDER MD-EMR) Reviewed by Provider, No further action required 03/09/2021 14:14 (DOUGIE JEREZ) Provider Review Required Electronically signed by [facility] Conversion Agricultural Research Engineer Cerner at 09/19/2022 11:45 PM CDT documented in this encounter Plan of Treatment Not on file documented as of this encounter Visit Diagnoses Not on filedocumented in this encounter
--- OUTSIDE RECORDS SUMMARY | 2024-11-11 11:03 | XMS_ITS | Encounter Summary ---
Author Organization [employer] Address [address] [place] [address] Care Team Providers Care Blank Driller Name Role Phone Unavailable Primary Care Provider Unavailabl e Encounter Details Date Type Department Care Team (Late st Contact Info) Description 03/09/2021 Transcribed Document [facility] [place] [address] [place] [address] ProviderHuber MD [address] [place], [place] [id number] Social History Tobacco Use Types Packs/Day Years Used Date Smoking Tobacco: Never Assessed Sex and Gender Information Value Date Recorded Sex Assigned at Male 11/29/2021 11:59 AM CDT Legal Sex Male 11:59 AM CDT Gender Identity Male 11/29/2021 11:59 AM CDT Sexual Orientation Not on file documented as of this encounter Miscellaneous Notes * Cerner Conversion Note - Huber ProviderMD - 03/09/2021 7:51 AM CDT Patient: LISSA JUÁREZ Age: 40 years Sex: Male : 1980 Associated Diagnoses: Altered mental status; Opiate abuse, episodic; Methamphetamine abuse; Abrasions of multiple sites; Head contusion; Ehvjzdqhvk-bnlfpubwu-vfflxuh (DPT) vaccination administered at current visit Author: DANIEL MOREIRA MD-EMR Basic Information Additional information: Chief Complaint from Nursing Triage Note : Chief Complaint 03/09/2021 7:40 EDT Chief Complaint Pt brought in per EMS found in street passed out, easily arousable, pt present to ED diaphoretic, A&Ox2, relapsed on opioids 8 months ago, . History of Present Illness Squad: Did not answer the head patient was unresponsive and tachycardic and they were bringing him and they do not give any history of having given him Narcan On arrival the patient is awake alert and says he has no idea of what happened he states he is on Suboxone and he does not do any drugs he is a recovering alcoholic. He states he lives in [place] and has no idea how he is here says he first thing he remembers is waking up in the ER (however he was totally awake when they rolled him it) He complains of head pain in the back of his head, and lower neck pain/upper back pain, and right lateral rib pain Review of Systems Constitutional symptoms: Negative except as documented in HPI. Skin symptoms: Abrasions. ENMT symptoms: Negative except as documented in HPI. Respiratory symptoms: No shortness of breath, Cardiovascular symptoms: Patient states his ribs on the right hurt. Gastrointestinal symptoms: No abdominal pain, no nausea, no vomiting. Genitourinary symptoms: Negative except as documented in HPI. Musculoskeletal symptoms: Negative except as documented in HPI. Neurologic symptoms: Headache, no dizziness, no numbness, no tingling, no weakness. Psychiatric symptoms: Negative except as documented in HPI. Endocrine symptoms: Negative except as documented in HPI. Hematologic/Lymphatic symptoms: Negative except as documented in HPI. Additional review of systems information: All other systems reviewed and otherwise negative. Health Status Allergies: Allergic Reactions (Selected) Severity Not Documented Penicillin- No reactions were documented. Sulfa drugs- No reactions were documented. . Past Medical/ Family/ Social History Surgical history: No active procedure history items have been selected or recorded. . Family history: No family history items have been selected or recorded. . Social history: Social & Psychosocial Habits No Data Available . Physical Examination Vital Signs Vital Signs/Vital Measures 03/09/2021 10:00 EDT Systolic Blood Pressure 106 mmHg Diastolic Blood Pressure 53 mmHg LOW Mean Arterial Pressure (MAP)-BMDI 76 Heart Rate Monitored 105 bpm HI Oxygen Saturation 94 % Oxygen Therapy Mode Room air End Tidal CO2 0 03/09/2021 9:30 EDT Heart Rate Monitored 105 bpm HI Oxygen Saturation 96 % End Tidal CO2 0 03/09/2021 9:00 EDT Heart Rate Monitored 109 bpm HI Oxygen Saturation 94 % End Tidal CO2 0 03/09/2021 8:30 EDT Systolic Blood Pressure 126 mmHg Diastolic Blood Pressure 59 mmHg LOW Mean Arterial Pressure (MAP)-BMDI 84 Heart Rate Monitored 119 bpm HI Respiratory Rate 21 Breaths/Min HI Oxygen Saturation 96 % End Tidal CO2 0 03/09/2021 8:00 EDT Systolic Blood Pressure 126 mmHg Diastolic Blood Pressure 59 mmHg LOW Mean Arterial Pressure (MAP)-BMDI 84 Heart Rate Monitored 134 bpm HI Respiratory Rate 32 Breaths/Min HI Oxygen Saturation 96 % End Tidal CO2 0 03/09/2021 7:40 EDT Systolic Blood Pressure 139 mmHg Diastolic Blood Pressure 72 mmHg Temperature Source Temporal artery scanning Temperature Mode Fahrenheit Temperature, Fahrenheit 98.1 Deg F Clinical Temperature, C 36.7 Deg C Peripheral Pulse Rate 151 bpm HI Respiratory Rate 18 Breaths/Min Oxygen Saturation 96 % Oxygen Therapy Mode Room air . Measurements 03/09/2021 7:40 EDT Height Source Stated Height Entry Format [place] Height/Length, LIBERIAN (ft) 5 ft Height/Length LIBERIAN 10 Inch CLINICALHEIGHT 177.8 cm [place] Body Weight 72.02 kg Weight Source, ED Critical estimated dosing weight Weight Entry Format [place] Weight Spanish lb 165 lb CLINICALWEIGHT 75 kg Body Surface Area (BSA) 1.93 m2 Body Mass Index 23.7 kg/m2 . Oxygen Saturation 03/09/2021 10:00 EDT Oxygen Saturation 94 % 03/09/2021 9:30 EDT Oxygen Saturation 96 % 03/09/2021 9:00 EDT Oxygen Saturation 94 % 03/09/2021 8:30 EDT Oxygen Saturation 96 % 03/09/2021 8:00 EDT Oxygen Saturation 96 % 03/09/2021 7:40 EDT Oxygen Saturation 96 % . General: Alert, restless. Lamar coma scale: Total score: Total score: 15. Neurological: Alert and oriented to person, place, time, and situation, No focal neurological deficit observed, Brisk bilateral reflexes. Skin: Warm, Abrasions knees, abrasions hands dorsally, abrasion occiput. Head: Hematoma occiput, No arnold sign. Neck: Supple, no tenderness, Paraspinous muscle tenderness at the base of the neck upper back C7-T1 area. Eye: Pupils are equal, round and reactive to light, extraocular movements are intact, normal conjunctiva. Ears, nose, mouth and throat: Tympanic membranes clear, oral mucosa moist, no pharyngeal erythema or exudate. Cardiovascular: Regular rate and rhythm, Tachycardic. Respiratory: Lungs are clear to auscultation, respirations are non-labored, breath sounds are equal, Symmetrical chest wall expansion. Gastrointestinal: Soft, Nontender, Non distended, Normal bowel sounds. Back: Pelvis stable. Musculoskeletal: Normal ROM, normal strength, no swelling, no deformity, Tender only over abrasions otherwise benign. Psychiatric: Cooperative. Medical Decision Making Documents reviewed: Emergency department nurses' notes, emergency department records. Orders Place New Orders Laboratory: Troponin I Ultra (Order): Specimen Type: Blood, Stat collect, 03/09/2021 7:52 EDT, 1-Time, Stop: 03/09/2021 7:52 EDT, Nurse Collect ED UDS (Order): Specimen Type: Urine, Stat collect, 03/09/2021 7:52 EDT, 1-Time, Stop: 03/09/2021 7:52 EDT, Nurse Collect Magnesium Level (Order): Specimen Type: Blood, Stat collect, 03/09/2021 7:52 EDT, 1-Time, Stop: 03/09/2021 7:52 EDT, Nurse Collect Pharmacy: Boostrix (Tdap) (Order): 0.5 mL, IntraMuscular, 1-Time Normal Saline 1,000 mL (Order): 125 mL/Hr, IntraVENous, Stop: 03/09/2021 15:52 EDT Ativan (Order): 1 mg, IV Push, 1-Time magnesium sulfate injection 2 Gram + Thiamine Injection 100 mg + multivitamin injection 10 mL + Sodium Chloride 0.9% intravenous solution 1,000 mL (Order): 1,000 mL/Hr, IntraVENous, Stop: 03/09/2021 8:52 EDT, Place New Orders Patient Care: BP (Order): Start: 03/09/2021 7:59 EDT, Q15Min Cardiac Monitoring (Order): Start: 03/09/2021 7:59 EDT Radiology: CT Spine Cervical WO (Order): Stat, Transport Mode: Stretcher/Gurney, 03/09/2021 7:59 EDT, Reason: Other (Please Specify), C-spine fx, traumatic CT Head WO (Order): Stat, Transport Mode: Stretcher/Gurney, 03/09/2021 7:58 EDT, Reason: Other (Please Specify), Head trauma, minor, GCS>=13, high clinical risk, initial exam CR Chest 1 Vw Portable (Order): Stat, Transport Mode: Portable, 03/09/2021 7:58 EDT, pneumonia Cardiology: EKG (Order): Start: 03/09/2021 7:59 EDT, Stat, 1-Time, done , Place New Orders Laboratory: Alcohol Level (Order): Specimen Type: Blood, Stat collect, 03/09/2021 8:41 EDT, 1-Time, Stop: 03/09/2021 8:41 EDT, Nurse Collect . pvc monitor: Rate 140, ST. Electrocardiogram: Rate 142, EP Interp, ST, NO STEMI. Results review: Lab results : Lab Results 03/09/2021 8:48 EDT Alcohol <3 mg/dL NA 03/09/2021 8:07 EDT Magnesium Level 3.2 mg/dL HI Troponin I Ultra <0.015 ng/mL 03/09/2021 7:52 EDT UDS pH 6.1 NA UDS Amp Positive UDS Dawn Negative UDS Benzo Negative UDS James Negative UDS Meth Negative UDS Opi Negative UDS Oxy Negative UDS PCP Negative UDS TCA Negative UDS THC Negative Buprenorphine Screen, Urine Positive Carisoprodol Screen, Urine Negative Fentanyl, Urine Positive Heroin Metab (6AM) by LC-MS/MS, Urine Negative Meperidine Screen, Urine Negative Propoxyphene, Urine Negative SpGravity, Urine 1.031 NA Tramadol Screen, Urine Negative UDS Creatinine, Toxicology 331.9 mg/dL NA 03/09/2021 7:41 EDT Sodium Level 140 mmol/L Potassium Level 3.8 mmol/L Chloride Level 102 mmol/L Carbon Dioxide Level 8 mmol/L LOW Anion Gap 34 HI Glucose Level 184 mg/dL HI Blood Urea Nitrogen 18 mg/dL CREATININE 1.69 mg/dL HI eGFR 55 mL/min/1.73m2 LOW eGFR NonAfrican 45 mL/min/1.73m2 LOW Bun/Creatinine 10.7 Calcium Level 9.4 mg/dL Protein Total 8.5 Gram/dL HI Albumin Level 4.5 Gram/dL Globulin 4.0 Gram/dL A/G Ratio 1.1 Bilirubin Total 0.6 mg/dL Alk Phos 91 Units/Liter AST 32 Units/Liter ALT 29 Units/Liter WBC 14.6 K/uL HI RBC 4.99 Million/uL Hgb 15.5 Gram/dL Hct 49.1 % MCV 98.4 fL HI MCH 31.1 pg MCHC 31.6 Gram/dL LOW Platelet Count 301 K/uL MPV 9.4 fL RDW 13.6 % Neut % 36.4 % Neut # 5.31 K/uL Lymph % 41.8 % Lymph # 6.11 K/uL HI [place] % 19.1 % HI [place] # 2.79 K/uL HI Eos % 1.2 % Eos # 0.18 K/uL Baso % 0.8 % Baso # 0.11 K/uL HI Slide Review Technologist IG# 0 x10(3)/uL IG% 1 % . Radiology results: Radiology Results (Last 48 hours) [id number] -- 03/09/2021 07:33 CR Chest 1 Vw Portable (03/09/2021 08:07) Result: PORTABLE CHEST 03/09/2021 7:58 AM HISTORY: Altered mental status.COMPARISON: None.FINDINGS: The heart is proper size. The mediastinum is unremarkable . The lungs are hypoaerated with perihilar vascular crowding . There isno pneumothorax . The osseous structures are unremarkable .IMPRESSION: Hypoaeration . Continued follow-up is recommended .Images reviewed, interpreted, and dictated by Dr. Katlyn Iyer.Transcribed by Jorge Arciniega (R).I have personally viewed, interpreted and dictated the examination. Ihave read and agree with the above final transcribed report. CT Spine Cervical WO (03/09/2021 08:41) Result: CT CERVICAL SPINE 03/09/2021 7:59 AM HISTORY: Head traumaCOMPARISON: None.PROCEDURE: Axial images were obtained from the skull base to thethoracic inlet by computed tomography. 3 D reconstruction images wereperformed. This study was performed with techniques to keep radiationdoses as low as reasonably achievable, (ALARA). Individualized dosereduction techniques using automated exposure control or adjustment ofmA and/or kV according to the patient size were employed.FINDINGS: There is no acute fracture or subluxation. No significantspinal or neural foraminal canal stenosis is seen. The disk spaces arepreserved. The facets are normally aligned. The soft tissues areunremarkable. Limited images of the lung apices are unremarkable.IMPRESSION: No acute fracture.Images personally reviewed, interpreted and dictated by GRANT Collins. CT Head WO (03/09/2021 08:41) Result: HEAD CT 03/09/2021 7:58 AM HISTORY: Head traumaTECHNIQUE: Multiple axial CT images were performed from the foramen magnum to thevertex. Coronal reformatted images were reconstructed from axial dataset. Individualized dose reduction techniques using automated exposurecontrol or adjustment of mA and/or kV according to the patient size wereemployed.COMPARISON: NoneFINDINGS: No acute intracranial hemorrhage or large acute cortical infarct. Thebrain volume is normal for the patient's age. Ventricles are normal insize and configuration. No midline shift. The basal cisterns are patent.No skull fracture. The visualized paranasal sinuses and mastoid aircells are clear.IMPRESSION: No acute intracranial hemorrhage or large acute cortical infarct.Images personally reviewed, interpreted and dictated by GRANT Collins. . Reexamination/ Reevaluation Left in the emergency department I rechecked him 3 times while he was here and each time he was amnestic for why he was here his heart rate is down to 110 with Ativan and he has had fluids He remains nonfocal He states his last ETOH was 3 weeks ago. He states he is in rehab. He does NOT remember doing drugs over night. He wants us to call his mother to come and get him and he was able to give me her name and a number, and he asked me to tell her why he was here. I called her and she states she is on her way He is still mildly tachycardic, most likely from the meth. His BP is WNL. He has had NS while here. Chest is NT and he moves easily in the bed (earlier he c/o rib pain) Wounds have been cleaned Impression and Plan Diagnosis Complaint of Altered mental status - Reason For Visit, Emergency medicine, Medical Opiate abuse, episodic - Discharge, Emergency medicine, Medical Methamphetamine abuse - Discharge, Emergency medicine, Medical Abrasions of multiple sites - Discharge, Emergency medicine, Medical Head contusion - Discharge, Emergency medicine, Medical Bbxmbkrwml-fzpskfhxk-cbrzgtd (DPT) vaccination administered at current visit - Discharge, Emergency medicine, Medical Plan Condition: Improved. Disposition: Discharged Admit/Transfer/Discharge: Discharge (Order): Start: 03/09/2021 11:23 EDT, Discharge to: Home, Other DC instructions: with designated street flusher driver (mom) . Patient was given the following educational materials: Amphetamines Use Disorder, Opioid Use Disorder. Follow up with: NO [facility] DR SHARPE Within 2 to 3 days; Follow up with primary care provider Within 2 to 3 days drink plenty of fluids today watch your abrasions for infection and return if problems . Counseled: Patient, Regarding diagnosis, Regarding diagnostic results, Regarding treatment plan, Regarding prescription, Patient indicated understanding of instructions. Addendum This patient was screened for and treated during the covid epidemic, with some possible constraints and deviations from usual care due to this, if tested and or screened the patient was educated on quarantine and isolation protocols until they follow up with their tests. documented in this encounter Plan of Treatment Not on file documented as of this encounter Visit Diagnoses Not on filedocumented in this encounter
--- OUTSIDE RECORDS SUMMARY | 2024-11-11 11:03 | XMS_ITS | Encounter Summary ---
Author Organization [employer] Address [address] [place] [address] Care Team Providers Care Auto Inspector Name Role Phone Unavailable Primary Care Provider Unavailabl e Encounter Details Date Type Department Care Team (Late st Contact Info) Description 03/09/2021 Transcribed Document [facility] [place] [facility] [place] [address] ProviderHuber MD [address] [place], [place] [id number] Social History Tobacco Use Types Packs/Day Years Used Date Smoking Tobacco: Never Assessed Sex and Gender Information Value Date Recorded Sex Assigned at Male 11/29/2021 11:59 AM CDT Legal Sex Male 11:59 AM CDT Gender Identity Male 11/29/2021 11:59 AM CDT Sexual Orientation Not on file documented as of this encounter Miscellaneous Notes * Cerner Conversion Note - Historical ProviderMD - 03/09/2021 11:24 AM CDT Electronically signed by [facility] Conversion Knit Goods Mender Cerner at 09/19/2022 11:50 PM CDT documented in this encounter Plan of Treatment Not on file documented as of this encounter Visit Diagnoses Not on filedocumented in this encounter
--- OUTSIDE RECORDS SUMMARY | 2024-11-11 11:04 | XMS_ITS | Referral Summary ---
Author Organization [employer] Address [address] [place] [address] Care Team Providers Care Supervisor Front Name Role Phone Unavailable Primary Care Provider Unavailabl e Allergies Active Allergy Reactions Criticality Noted Date Comments Penicillins Other (See Comments) 08/27/2019 Unknown from childhood Sulfa (Sulfonamide Antibiotics) 09/10/2022 Medications No known medications Social History Tobacco Use Types Packs/Day Years Used Date Smoking Tobacco: Never Assessed Sex and Gender Information Value Date Recorded Sex Assigned at Male 11/29/2021 11:59 AM CDT Legal Sex Male 11:59 AM CDT Gender Identity Male 11/29/2021 11:59 AM CDT Sexual Orientation Not on file Last Filed Vital Signs Vital Sign Reading Time Taken Comments Blood Pressure 123/84 09/10/2022 1:18 PM EDT Pulse 115 09/10/2022 1:18 PM EDT Temperature 36.4 C (97.5 F) 09/10/2022 1:18 PM EDT Respiratory Rate 16 09/10/2022 1:18 PM EDT Oxygen Saturation 100% 09/10/2022 1:18 PM EDT Inhaled Oxygen Concentration - - Weight 78.7 kg (173 lb 8 oz) 09/10/2022 1:18 PM EDT Height - - Body Mass Index - - Plan [id number] BCZEN MÉNDEZ DNIH
--- OUTSIDE RECORDS SUMMARY | 2024-11-11 11:04 | XMS_ITS | Encounter Summary ---
Author Organization [employer] Address [address] [place] [address] Care Team Providers Care National Flatbed Truck Driver Name Role Phone Unavailable Primary Care Provider Unavailabl e Encounter Details Date Type Department Care Team (Late st Contact Info) Description 01/06/2020 Transcribed Document [facility] [place] [address] [place] [address] ProviderHuber MD [address] [place], [place] [address] Social History Tobacco Use Types Packs/Day Years Used Date Smoking Tobacco: Never Assessed Sex and Gender Information Value Date Recorded Sex Assigned at Male 11/29/2021 11:59 AM CDT Legal Sex Male 11:59 AM CDT Gender Identity Male 11/29/2021 11:59 AM CDT Sexual Orientation Not on file documented as of this encounter Miscellaneous Notes * Cerner Conversion Note - Huber ProviderMD - 01/06/2020 5:12 AM CDT ED Triage Entered On: 01/06/2020 5:34 EDT Performed On: 01/06/2020 5:32 EDT by MOUSTAPHA SUN RN ED Triage Across the Room Transported to ED by : Ambulance/ALS EMS Service : [facility] To Room Via : Ambulate Accompanied By : Unaccompanied ED Vital Signs : Document Height & Weight : Document ED Allergies : Document ED Reason for Visit : Document MOUSTAPHA SUN RN - 01/06/2020 5:41 EDT Mode of Arrival : Stretcher MOUSTAPHA SUN RN - 01/06/2020 5:37 EDT Chief Complaint : via ems requesting detox. 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 Denies SI/HI. MOUSTAPHA SUN RN - 01/06/2020 5:41 EDT Triage Date/Time : 01/06/2020 5:32 EDT MOUSTAPHA SUN RN - 01/06/2020 5:32 EDT MOUSTAPHA SUN RN - 01/06/2020 5:32 EDT DCP GENERIC CODE Tracking Acuity : 3 - Urgent MOUSTAPHA SUN RN - 01/06/2020 5:37 EDT Tracking Group : [facility] ED MOUSTAPHA SUN RN - 01/06/2020 5:32 EDT Infectious Disease History Has the patient ever been tested for COVID-19? : No, Patient stated Does patient have symptoms of COVID-19? : Yes COVID19 Screening : No Experiencing Infectious Disease Symptoms : No symptoms Physical contact outside [place] in the last 30 days : No Infectious Disease History : Chicken pox/Shingles, Hepatitis A, Influenza Tuberculosis Symptoms : None MOUSTAPHA SUN RN - 01/06/2020 5:41 EDT Vital Signs ED Temperature Source : Oral Temperature Mode : Fahrenheit Temperature, Fahrenheit : 98.9 Deg F Clinical Temperature, C : 37.2 Deg C Oxygen Therapy Mode : Room air Peripheral Pulse Rate : 112 bpm (HI) Respiratory Rate : 18 Breaths/Min Systolic Blood Pressure : 132 mmHg Diastolic Blood Pressure : 74 mmHg Oxygen Saturation : 97 % MOUSTAPHA SUN RN - 01/06/2020 5:41 EDT Allergy (As Of: 01/06/2020 05:46:14 EDT) Allergies (Active) penicillin Estimated Onset Date: Unspecified ; Created By: MOUSTAPHA SUN RN; Reaction Status: Active ; Category: Drug ; Substance: penicillin ; Type: Allergy ; Updated By: MOUSTAPHA SUN RN; Reviewed Date: 01/06/2020 5:44 EDT sulfa drugs Estimated Onset Date: Unspecified ; Created By: MOUSTAPHA SUN RN; Reaction Status: Active ; Category: Drug ; Substance: sulfa drugs ; Type: Allergy ; Updated By: MOUSTAPHA SUN RN; Reviewed Date: 01/06/2020 5:44 EDT Diagnosis Control ED (As Of: 01/06/2020 05:46:14 EDT) Diagnoses(Active) Psychiatric screening exam Date: 01/06/2020 ; Diagnosis Type: Reason For Visit ; Confirmation: Complaint of ; Clinical Dx: Psychiatric screening exam ; Classification: Medical ; Clinical Service: Non-Specified ; Code: PNED ; Probability: 0 ; Diagnosis Code: [id number] ED Height and Weight Height Source : Stated Height Entry Format : [place] Height, Feet : 5 ft(Converted to: 152 cm, 60 Inch) Height, Inches : 9 Inch(Converted to: 0 ft 9 Inch, 22.86 cm) Clinical Height : 175.26 cm Weight Source, ED : Critical estimated dosing weight Weight Entry Format : [place] Weight, Pounds : 190 lb Clinical Dosing Weight : 86.36 kg Body Surface Area (BSA) : 2.02 m2 Body Mass Index : 28.1 kg/m2 (HI) [place] Body Weight (IBW) : 69.73 kg MOUSTAPHA SUN RN - 01/06/2020 5:41 EDT documented in this encounter Plan of Treatment Not on file documented as of this encounter Visit Diagnoses Not on filedocumented in this encounter
--- OUTSIDE RECORDS SUMMARY | 2024-11-11 11:04 | XMS_ITS | Clinical Summary ---
Author Organization [employer] Address [address] [place] [address] Care Team Providers Care Revenue Coordinator Name Role Phone Unavailable Primary Care Provider [...] [place] [id number] BCZEN MÉNDEZ DINH
--- OUTSIDE RECORDS SUMMARY | 2024-11-11 11:04 | XMS_ITS | Encounter Summary ---
Author Organization [employer] Address [address] [place] [address] Care Team Providers Care Rad Technologist Name Role Phone Unavailable Primary Care Provider Unavailabl e Encounter Details Date Type Department Care Team (Late st Contact Info) Description 03/09/2021 Transcribed Document [facility] [place] [facility] [place] [address] ProviderHuber MD [address] [place], [place] [id number] Social History Tobacco Use Types Packs/Day Years Used Date Smoking Tobacco: Never Assessed Sex and Gender Information Value Date Recorded Sex Assigned at Male 11/29/2021 11:59 AM CDT Legal Sex Male 11:59 AM CDT Gender Identity Male 11/29/2021 11:59 AM CDT Sexual Orientation Not on file documented as of this encounter Miscellaneous Notes * Cerner Conversion Note - Huber ProviderMD - 03/09/2021 7:33 AM CDT [place] Suicide Severity Rating Scale (C-SSRS) Entered On: 03/09/2021 8:14 EDT Performed On: 03/09/2021 8:08 EDT by Haydee Menard Rn [place] Suicide Severity Rating Scale (C-SSRS) CSSRS Past Month Wish to be : No CSSRS Past Month Suicidal Thoughts : No CSSRS Lifetime Suicide Behavior : No Suicide Severity Rating Score : 0 Suicide Severity Rating : No Additional Care Required at this time Haydee Menard Rn - 03/09/2021 8:08 EDT documented in this encounter Plan of Treatment Not on file documented as of this encounter Visit Diagnoses Not on filedocumented in this encounter
--- OUTSIDE RECORDS SUMMARY | 2024-11-11 11:04 | XMS_ITS | Encounter Summary ---
Author Organization [employer] Address [address] [place] [address] Care Team Providers Care Gm/Svp Global Publisher Business Name Role Phone Unavailable Primary Care Provider Unavailabl e Encounter Details Date Type Department Care Team (Late st Contact Info) Description 01/06/2020 Transcribed Document [facility] [place] [address] [place] [address] ProviderHuber MD [address] [place], [place] [id number] Social History Tobacco Use Types Packs/Day Years [...] ProviderMD - 01/06/2020 5:12 AM CDT ED Assessment Entered On: 01/06/2020 6:00 EDT Performed On: 01/06/2020 5:59 EDT by Yarelis Kemp RN ED Quick Look Assessment Level of Consciousness : Alert, Awake Affect/Behavior : Appropriate, Calm, Cooperative Orientation : Oriented x 4 Skin Temperature : Warm Skin Description : Normal for ethnicity Yarelis Kemp RN - 01/06/2020 5:59 EDT ED General-Functional Assess Information Obtained From : Patient Communication Barrier : None Primary Language : Malaysian Any Spiritual/Cultural Needs or Requests : No Currently in Unsafe Situation : No Yarelis Kemp RN - 01/06/2020 5:59 EDT ED Psychosocial Assessment Affect/Behavior : Appropriate, Calm Describe Ineffective Coping : Other: drug use Patient Coping : Limited coping Hallucinations Present : None Delusions Present : None Psychosocial Comment : 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 pt denies any symptoms. pt also denies SI/HI Yarelis Kemp RN - 01/06/2020 5:59 EDT Social Habits Smoking Status : 10 or more cigarettes (1/2 pack or more)/day in last 30 days Smokeless Tobacco Status : Never Desires Tobacco Cessation Medication : No Reason for No Tobacco Cessation Medication : ED/procedural patient only Desires Tobacco Cessation Calc : 1 Yarelis Kemp RN - 01/06/2020 5:59 EDT Social History (As Of: 01/06/2020 06:00:45 EDT) Cardiovascular ASMT, ED Cardiovascular Assessment WDL : Yarelis Gusman RN - 01/06/2020 5:59 EDT Gastrointestinal ED Gastrointestinal Assessment WDL : Yarelis Gusman RN - 01/06/2020 5:59 EDT Neurologic ASMT, ED Neurologic Assessment WDL : Yarelis Gusman RN - 01/06/2020 5:59 EDT documented in this encounter Plan of Treatment Not on file documented as of this encounter Visit Diagnoses Not on filedocumented in this encounter
--- OUTSIDE RECORDS SUMMARY | 2024-11-11 11:04 | XMS_ITS | Encounter Summary ---
Author Organization [employer] Address [address] [place] [address] Care Team Providers Care Telegraph Office Manager Name Role Phone Unavailable Primary Care Provider Unavailabl e Encounter Details Date Type Department Care Team (Late st Contact Info) Description 03/09/2021 Transcribed Document [facility] [place] [address] [place] [address] ProviderHuber MD [address] [place], [place] [id number] Social History Tobacco Use Types Packs/Day Years [...] Huber ProviderMD - 03/09/2021 7:33 AM CDT [place] Violence Assessment Entered On: 03/09/2021 8:10 EDT Performed On: 03/09/2021 8:08 EDT by Haydee Menard Rn [place] Violence Assessment [place] Violence Checklist of Symptoms : Confused [place] Violence Symptoms Subtotal : 1 Bro[place] Violence Symptoms Indicator : Moderate risk (1-2) [place] Interventions : [place] precautions for safety used Haydee Menard Rn - 03/09/2021 8:08 EDT documented in this encounter Plan of Treatment Not on file documented as of this encounter Visit Diagnoses Not on filedocumented in this encounter
--- OUTSIDE RECORDS SUMMARY | 2024-11-11 11:04 | XMS_ITS | Encounter Summary ---
Author Organization [employer] Address [address] [place] [address] Care Team Providers Care Pattern Fitter Name Role Phone Unavailable Primary Care Provider Unavailabl e Encounter Details Date Type Department Care Team (Late st Contact Info) Description 01/06/2020 Transcribed Document [facility] [place] [address] ProviderHuber MD [address] [place] [id number] Social History Tobacco Use Types Packs/Day Years Used Date Smoking Tobacco: Never Assessed Sex and Gender Information Value Date Recorded Sex Assigned at Male 11/29/2021 11:59 AM CDT Legal Sex Male 11:59 AM CDT Gender Identity Male 11/29/2021 11:59 AM CDT Sexual Orientation Not on file documented as of this encounter Miscellaneous Notes * Cerner Conversion Note - Huber Perdomo MD - 01/06/2020 6:01 AM CDT [facility] [place] [address] JOHNANNY CRYSTALCAMILA O[place]illy :1980 Visit Time:01/06/2020 Your Visit Summary Your Care Team Primary Provider: KEITH REIS MD Secondary Provider: Your Diagnosis Encounter for medical screening examination Insomnia Medical screening exam Psychiatric screening exam Medical Information You may obtain a copy of your Emergency Department visit from Medical Records by calling the hospital phone number listed above and asking to be directed to the Medical Records Department. If you had special tests, such as EKG???s or X-rays, the interpretation of your tests given to you by the Emergency Department Physician is a preliminary report. Some fractures and illnesses fail to show up on preliminary tests. These will be reviewed again and we will call you if there are any new suggestions. If your symptoms continue notify your physician. After you leave, you should follow the instructions provided. What to do next Follow-Up Appointments Follow Up with Follow up with [facility] at: [address] [facility], [address] [place] [address] P. [phone] When Within in AM Allergies penicillin sulfa drugs Immunizations This Visit No Immunizations Found Medications The home medications listed are only as accurate as the information you provided. Please continue taking all of your medications prescribed by your Primary Care Provider unless specifically told to change or discontinue the medication. Please direct any questions regarding your home medications to your Primary Care Provider. Take your medications faithfully. Do NOT skip medication. Do NOT stop taking medications without the direction of a physician. Carry a list of your medications with you at all times, and take this medication list with you to your first follow up visit. Report any side effects. Avoid herbal remedies unless discussed with your physician. As part of your treatment plan, your physician may have prescribed a limited course of a controlled substance. This medication may be given to help people with moderate or severe pain or for other medical conditions, but there are risks involved with treatment. Common side effects may include nausea, constipation, drowsiness, sweating, itching, dry mouth, and rash. More serious side effects may include cognitive and motor impairment, like problems with thinking, concentrating, alertness, and movement (e.g. slowed reflexes), and driving and operating heavy machinery can be dangerous. It is important for you to talk to your physician if you have these side effects or questions. These controlled substances can produce physical dependence and be habit-forming if taken for an extended period of time, which means that the body has gotten used to them and may experience withdrawal symptoms if they are abruptly stopped. Withdrawal symptoms can include runny nose, sweating, goose bumps, diarrhea, abdominal cramping, rapid heartbeat, difficulty sleeping, and nervousness. Please dispose of unused and medications per pharmacy guidance. Test Results Laboratory or Other Results This Visit (last charted value for your 01/06/2020 visit) No Laboratory or Other Results This Visit Education Materials Stimulant Use Disorder-Methamphetamines Methamphetamines belong to a group of powerful drugs known as stimulants. Common street names for methamphetamine are meth, speed, crystal, ice, glass, and chalk. Methamphetamines have some medical uses, but they are often misused because of the effects that they produce. These effects include: ??? A feeling of extreme pleasure (euphoria). ??? Alertness. ??? A high energy level. ??? Increased sexuality. Stimulant use disorder is when your stimulant use disrupts your daily life. It may disrupt your relationships and how you do your job. Stimulant use disorder can be dangerous. Methamphetamines increase your blood pressure and heart rate. Using them can lead to a heart attack or stroke. Methamphetamines can also make your heart rate irregular and cause seizures. These problems can lead to . What are the causes? This condition is caused by misusing methamphetamines for a period of time, such as by taking them for reasons other than to treat a diagnosed problem. Many people start using methamphetamine because they make them feel good. Over time, they get addicted to them. When they try to stop using it, they feel sick. Methamphetamines work fast, and the good feelings that they produce go away quickly. As a result, people often binge on the drug and take multiple doses over short periods of time. What increases the risk? This condition is more likely to develop in people who: ??? Misuse other drugs. ??? Have problems with mood or behavior. What are the signs or symptoms? Symptoms of this condition include: ??? Using greater amounts of a methamphetamine than you want to, or using a methamphetamine for longer than you want to. ??? Trying several times to use less of a methamphetamine or to control your methamphetamine use. ??? Craving methamphetamines. ??? Spending a lot of time getting methamphetamines, using them, or recovering from their effects. ??? Having problems at work, at school, at home, or in relationships because of methamphetamine use. ??? Giving up or cutting down on important life activities because of methamphetamine use. ??? Using methamphetamines when it is dangerous, such as when driving a car. ??? Continuing to use methamphetamines even though they are causing or have led to a physical problem, such as: ? Extreme weight loss. ? Malnutrition. ? Jaw clenching. ? Severe dental problems. ? Lung problems. ? Skin sores. ? An infection, such as hepatitis or HIV (human immunodeficiency virus). ??? Continuing to use methamphetamines even though they are causing a mental problem, such as: ? Memory problems. ? Seeing or hearing things that are not really there (having hallucinations). ? Violent behavior. ? Anxiety. ? Sleep problems. ??? Needing more and more of a methamphetamine to get the same effect that you want (building up a tolerance). ??? Having symptoms of withdrawal when you stop using a methamphetamine. Symptoms of withdrawal include: ? Inability to feel pleasure (anhedonia). ? Irritability. ? Low energy. ? Restlessness. ? Bad dreams. ? Too little or too much sleep. ? Increased appetite. How is this diagnosed? This condition is diagnosed with an assessment. During the assessment, your health care provider will ask about your methamphetamine use and about how it affects your life. You will be diagnosed with the condition if you have had at least two symptoms of this condition within a 12-month period. How severe the condition is depends on how many symptoms you have: ??? If you have 2 or 3 symptoms, your condition is mild. ??? If you have 4 or 5 symptoms, your condition is moderate. ??? If you have 6 or more symptoms, your condition is severe. Your health care provider may perform a physical exam or do lab tests to see if you have physical problems resulting from methamphetamine use. Your health care provider may also screen for drug use and refer you to a mental health professional for evaluation. How is this treated? Treatment for this condition may involve: ??? Immediate care. This treatment addresses your symptoms and immediate needs. It helps prevent or minimize damage from any physical or mental problems that are related to your methamphetamine use. ??? Medicines to treat related disorders. ??? Long-term substance abuse treatment. This type helps you stop using methamphetamines. It is usually provided by mental health professionals with training in substance use disorders. It usually involves a combination of the following: ? Counseling. This treatment is also called talk therapy. It is provided by substance use treatment counselors. A counselor can address the reasons you use methamphetamines and suggest ways to keep you from using methamphetamines again. The goals of talk therapy are to find healthy activities and ways to cope with stress, identify and avoid what triggers your methamphetamine use, and help you learn how to handle cravings. ? Support groups. Support groups are run by people who have quit using stimulants. They provide emotional support, advice, and guidance. Follow these instructions at home: ??? Take [id number] and prescription medicines only as told by your health care provider. ??? Check with your health care provider before starting any new medicines. ??? Keep all follow-up visits as told by your health care provider. This is important. ??? Take care of your teeth by: ? Brushing and flossing your teeth. Do this two times a day. ? Using an antibacterial mouthwash. ? Avoiding sugary drinks. ??? Do not use any products that contain nicotine or tobacco, such as cigarettes and e-cigarettes. If you need help quitting, ask your health care provider Where to find more information ??? National [place] on Drug Abuse: www.drugabuse.gov ??? Substance Abuse and Mental Health Services Administration: www.samhsa.gov Contact a health care provider if: ??? Your symptoms get worse. ??? You use methamphetamines again. ??? You are not able to take medicines as told. Get help right away if: ??? You have serious thoughts about hurting yourself or others. ??? You have a seizure. ??? You have chest pain. ??? You have sudden weakness. ??? You lose some of your vision. ??? You lose some of your speech. If you ever feel like you may hurt yourself or others, or have thoughts about taking your own life, get help right away. You can go to your nearest emergency department or call: ??? Your local emergency services (911 in the [place] ??? A suicide crisis helpline, such as the National Suicide Prevention Lifeline at . This is open 24 hours a day. This information is not intended to replace advice given to you by your health care provider. Make sure you discuss any questions you have with your health care provider. Document Released: 01/24/2005 Document Revised: 05/03/2018 Document Reviewed: 03/02/2017 Elsevier Patient Education ?? 2020 [employer] Insomnia Insomnia is a sleep disorder that makes it difficult to fall asleep or stay asleep. Insomnia can cause fatigue, low energy, difficulty concentrating, mood swings, and poor performance at work or school. There are three different ways to classify insomnia: ??? Difficulty falling asleep. ??? Difficulty staying asleep. ??? Waking up too early in the morning. Any type of insomnia can be long-term (chronic) or short-term (acute). Both are common. Short-term insomnia usually lasts for three months or less. Chronic insomnia occurs at least three times a week for longer than three months. What are the causes? Insomnia may be caused by another condition, situation, or substance, such as: ??? Anxiety. ??? Certain medicines. ??? Gastroesophageal reflux disease (GERD) or other gastrointestinal conditions. ??? Asthma or other breathing conditions. ??? Restless legs syndrome, sleep apnea, or other sleep disorders. ??? Chronic pain. ??? Menopause. ??? Stroke. ??? Abuse of alcohol, tobacco, or illegal drugs. ??? Mental health conditions, such as depression. ??? Caffeine. ??? Neurological disorders, such as Alzheimer's disease. ??? An overactive thyroid (hyperthyroidism). Sometimes, the cause of insomnia may not be known. What increases the risk? Risk factors for insomnia include: ??? Gender. Women are affected more often than men. ??? Age. Insomnia is more common as you get older. ??? Stress. ??? Lack of exercise. ??? Irregular work schedule or working night shifts. ??? Traveling between different time zones. ??? Certain medical and mental health conditions. What are the signs or symptoms? If you have insomnia, the main symptom is having trouble falling asleep or having trouble staying asleep. This may lead to other symptoms, such as: ??? Feeling fatigued or having low energy. ??? Feeling nervous about going to sleep. ??? Not feeling rested in the morning. ??? Having trouble concentrating. ??? Feeling irritable, anxious, or depressed. How is this diagnosed? This condition may be diagnosed based on: ??? Your symptoms and medical history. Your health care provider may ask about: ? Your sleep habits. ? Any medical conditions you have. ? Your mental health. ??? A physical exam. How is this treated? Treatment for insomnia depends on the cause. Treatment may focus on treating an underlying condition that is causing insomnia. Treatment may also include: ??? Medicines to help you sleep. ??? Counseling or therapy. ??? Lifestyle adjustments to help you sleep better. Follow these instructions at home: Eating and drinking ??? Limit or avoid alcohol, caffeinated beverages, and cigarettes, especially close to bedtime. These can disrupt your sleep. ??? Do not eat a large meal or eat spicy foods right before bedtime. This can lead to digestive discomfort that can make it hard for you to sleep. Sleep habits ??? Keep a sleep diary to help you and your health care provider figure out what could be causing your insomnia. Write down: ? When you sleep. ? When you wake up during the night. ? How well you sleep. ? How rested you feel the next day. ? Any side effects of medicines you are taking. ? What you eat and drink. ??? Make your bedroom a dark, comfortable place where it is easy to fall asleep. ? Put up shades or blackout curtains to block light from outside. ? Use a white noise machine to block noise. ? Keep the temperature cool. ??? Limit screen use before bedtime. This includes: ? Watching TV. ? Using your smartphone, tablet, or computer. ??? Stick to a routine that includes going to bed and waking up at the same times every day and night. This can help you fall asleep faster. Consider making a quiet activity, such as reading, part of your nighttime routine. ??? Try to avoid taking naps during the day so that you sleep better at night. ??? Get out of bed if you are still awake after 15 minutes of trying to sleep. Keep the lights down, but try reading or doing a quiet activity. When you feel sleepy, go back to bed. General instructions ??? Take ssxc-moo-[id number] and prescription medicines only as told by your health care provider. ??? Exercise regularly, as told by your health care provider. Avoid exercise starting several hours before bedtime. ??? Use relaxation techniques to manage stress. Ask your health care provider to suggest some techniques that may work well for you. These may include: ? Breathing exercises. ? Routines to release muscle tension. ? Visualizing peaceful scenes. ??? Make sure that you drive carefully. Avoid driving if you feel very sleepy. ??? Keep all follow-up visits as told by your health care provider. This is important. Contact a health care provider if: ??? You are tired throughout the day. ??? You have trouble in your daily routine due to sleepiness. ??? You continue to have sleep problems, or your sleep problems get worse. Get help right away if: ??? You have serious thoughts about hurting yourself or someone else. If you ever feel like you may hurt yourself or others, or have thoughts about taking your own life, get help right away. You can go to your nearest emergency department or call: ??? Your local emergency services (911 in the [place] ??? A suicide crisis helpline, such as the National Suicide Prevention Lifeline at . This is open 24 hours a day. Summary ??? Insomnia is a sleep disorder that makes it difficult to fall asleep or stay asleep. ??? Insomnia can be long-term (chronic) or short-term (acute). ??? Treatment for insomnia depends on the cause. Treatment may focus on treating an underlying condition that is causing insomnia. ??? Keep a sleep diary to help you and your health care provider figure out what could be causing your insomnia. This information is not intended to replace advice given to you by your health care provider. Make sure you discuss any questions you have with your health care provider. Document Released: 05/18/2001 Document Revised: 05/03/2018 Document Reviewed: 02/28/2018 [employer] Patient Education ?? 2020 [employer] Emergency Awareness and Preventative Care STROKE is an EMERGENCY Every Minute Counts Act FAST and Check for these signs: FACE Does the face look uneven? ARM Does one arm drift down? SPEECH Does their speech sound strange? TIME Call at any sign of stroke Stroke Risk Factors Atrial Fibrillation (irregular heartbeat) Diabetes Family history of stroke Heart Disease Heavy alcohol use High Blood Pressure High Cholesterol Physical inactivity and obesity Smoking Cigarette Smoking The facts are clear, cigarette smoking will shorten your life. Smoking can cause many illnesses along the way. As a healthcare provider, we recommend that you stop smoking. Assistance with quitting is available by contacting 4-084-[place]-NOW. This is a free resource providing counseling, support, and referral. Or you may contact your personal physician. National Suicide Prevention Lifeline: The National Suicide Prevention Lifeline is a national network of local crisis centers that provides free and confidential emotional support to people in suicidal crisis or emotional distress 24 hours a day, 7 days a week. Don't Wait! Stop a Heart Attack Before it Starts What is a heart attack? A heart attack is damage or to a part of the heart from severely decreased or lack of blood flow to the heart. Over time, arteries can become narrow from the buildup of fat and cholesterol, which is called plaque. The plaque can rupture causing a blood clot to form. When the blood clot forms, the artery can become severely narrowed or completely blocked, causing a heart attack. Heart attack is the leading cause of in the [place]. 85% of muscle damage occurs within the first 2 hours. Delay in the recognition of heart attack symptoms increases the chances of . Know the early symptoms of a heart attack: Nausea Feeling of fullness in chest Jaw Pain Pain that travels down one or both arms Fatigue/being tired Anxiety Back Pain Chest pressure, squeezing, or discomfort Shortness of breath Sweating, or a cold sweat Feeling of impending doom There are unusual signs of a heart attack, too! Women, the elderly, and diabetics may present with atypical symptoms: Fainting/dizziness Weakness Confusion Risk Factors for a Heart Attack Some heart disease risk factors, such as age and family history, cannot be changed. Others, like smoking and lack of exercise, can be changed. Smoking High Cholesterol High Blood Pressure Family History Obesity Age Gender (Males are at higher risk) Lack of Exercise Diabetes Diet Stress Excessive Alcohol Intake If you or someone you know is experiencing the signs and symptoms of a heart attack, DON???T DELAY. Call immediately and seek help. If someone collapses, perform CPR! Do not attempt to drive if you are having symptoms of heart attack. Hands-Only CPR Why Hands-Only CPR? Hands-Only CPR has been shown to be as effective as conventional CPR for cardiac arrests that occur outside of a hospital. Survival depends on immediately receiving CPR from someone nearby. How do you perform Hands-Only CPR? There are two easy steps: Call if you see a teen or adult collapse Push hard and fast in the center of the chest at a beat of 100 beats per minute. Save a life! 4 WAYS TO GET AHEAD OF SEPSIS SEPSIS is a MEDICAL EMERGENCY. Time matters! Infections put you and your family at risk for a life-threatening condition called sepsis. Sepsis is the body's extreme response to an infection. It is life-threatening, and without timely treatment, sepsis can rapidly lead to tissue damage, organ failure, and . Sepsis happens when an infection you already have-in your skin, lungs, urinary tract or somewhere else-triggers a chain reaction throughout your body. 1 PREVENT INFECTIONS Take good care of chronic conditions. Talk to your doctor about getting the recommended vaccines. 2 PRACTICE GOOD HYGIENE Wash your hands frequently. Keep cuts or open sores clean and covered until they are healed. 3 KNOW THE SYMPTOMS Confusion or disorientation Shortness of breath High heart rate Fever, shivering, or feeling very cold Extreme pain or discomfort Clammy or sweaty skin 4 ACT FAST Get medical care IMMEDIATELY if you suspect sepsis or if you have an infection that is not getting better or is getting worse. To learn more about sepsis and how to prevent infections, visit www.cdc.gov/sepsis. The examination and treatment you have received in the Emergency Department has been done to provide an appropriate evaluation and stabilizing treatment on an emergency basis only. Given the limited resources, it is not meant to be a substitute for complete medical care. The follow-up doctor you named will receive a copy of your records and all test reports. IT IS IMPORTANT THAT YOU SCHEDULE A FOLLOW-UP APPOINTMENT AND ARE RE-EVALUATED. You should report any new complaints, symptoms, or remaining problems at that time. IT IS IMPOSSIBLE FOR THE EMERGENCY DEPARTMENT TO RECOGNIZE AND TREAT ALL ELEMENTS OF INJURY OR ILLNESS IN A SINGLE VISIT. If you have been referred to a specialist physician, it means that we believe you may have a condition that requires the expertise of a specialist. These physicians work in partnership with the hospital and have agreed to see referred patients in their office for further evaluation. KEEP IN MIND THAT THE SPECIALIST HAS HIS/HER OWN OFFICE POLICIES WHICH MAY REQUIRE PROPER INSURANCE OR PAYMENT UP FRONT BEFORE THE SPECIALIST WILL SEE YOU. It is your responsibility to call the specialist physician to make an appointment. We do not have the ability to refer patients to specialists/physicians that work with specific insurance companies. Please be advised that all financial charges or billing practices are determined by that practice, not the hospital. If your insurance company requires that you see a specialist from their approved list, it is your responsibility to contact your insurance company to make those arrangements. It is also your responsibility to follow any other requirements of your insurance company necessary to obtain coverage for claims submitted. We will bill your insurance; however, you are responsible today for any co-pay amounts. You will receive a separate bill for any services you may have received including: emergency, radiology, or pathology physicians. Patient Name:LISSA HERNANDEZ Afia I have received this information and was given the opportunity to ask questions. Patient/Hose Inspector Name: Patient/Hose Inspector Signature: Relationship to Patient: Clinician/Hospital Hose Inspector Signature: Please Provide a Telephone Number Where You Can Be Reached: Is it Permissible To Leave a Message? Date: Electronically signed by Dione, Frank Conversion Rn Clinical Documentation Specialist Laurenner at 09/19/2022 11:41 PM CDT documented in this encounter Plan of Treatment Not on file documented as of this encounter Visit Diagnoses Not on filedocumented in this encounter
--- OUTSIDE RECORDS SUMMARY | 2024-11-11 11:04 | XMS_ITS | Encounter Summary ---
Author Organization [employer] Address [address] [place] [address] Care Team Providers Care Licensed Club Manager Name Role Phone Unavailable Primary Care Provider Unavailabl e Encounter Details Date Type Department Care Team (Late st Contact Info) Description 01/06/2020 Transcribed Document [facility] [place] [address] [place] [address] ProviderHuber MD [address] [place], [place] [id number] Social History Tobacco Use Types Packs/Day Years Used Date Smoking Tobacco: Never Assessed Sex and Gender Information Value Date Recorded Sex Assigned at Male 11/29/2021 11:59 AM CDT Legal Sex Male 11:59 AM CDT Gender Identity Male 11/29/2021 11:59 AM CDT Sexual Orientation Not on file documented as of this encounter Miscellaneous Notes * Laurenner Conversion Note - Huber ProviderMD - 01/06/2020 5:56 AM CDT Electronically signed by [facility] Conversion Collection Agent Vivienne at 09/19/2022 11:33 PM CDT documented in this encounter Plan of Treatment Not on file documented as of this encounter Visit Diagnoses Not on filedocumented in this encounter
--- OUTSIDE RECORDS SUMMARY | 2024-11-11 11:04 | XMS_ITS | Encounter Summary ---
Author Organization [employer] Address [address] [place] [address] Care Team Providers Care Yarn Comber Name Role Phone Unavailable Primary Care Provider Unavailabl e Encounter Details Date Type Department Care Team (Late st Contact Info) Description 03/09/2021 Transcribed Document [facility] [place] [facility] [place] [address] ProviderHuber MD [address] [place] [id number] Social History Tobacco Use Types Packs/Day Years [...] Huber ProviderMD - 03/09/2021 7:33 AM CDT ED Assessment Entered On: 03/09/2021 8:10 EDT Performed On: 03/09/2021 8:08 EDT by Haydee Menard, photoengraving proofer apprentice Quick Look Assessment Level of Consciousness : Awake, Confused Affect/Behavior : Appropriate, Calm, Cooperative Orientation : Not oriented to place, Not oriented to situation, Not oriented to time Skin Temperature : Warm Skin Description : Normal for ethnicity, Diaphoretic Haydee Menard, Rn - 03/09/2021 8:08 EDT ED General-Functional Assess Information Obtained From : Patient, Other: EMS Communication Barrier : Cognitive Primary Language : Montenegrin Any Spiritual/Cultural Needs or Requests : No Currently in Unsafe Situation : No Haydee Menard Rn - 03/09/2021 8:16 EDT Social Habits Smoking Status : 10 or more cigarettes (1/2 pack or more)/day in last 30 days Smokeless Tobacco Status : Never Desires Tobacco Cessation Medication : No Reason for No Tobacco Cessation Medication : ED/procedural patient only Desires Tobacco Cessation Calc : 1 Haydee Menard Rn - 03/09/2021 8:16 EDT Social History (As Of: 03/09/2021 08:18:18 EDT) documented in this encounter Plan of Treatment Not on file documented as of this encounter Visit Diagnoses Not on filedocumented in this encounter
--- OUTSIDE RECORDS SUMMARY | 2024-11-11 11:04 | XMS_ITS | Encounter Summary ---
Author Organization [employer] Address [address] [place] [address] Care Team Providers Care Mattress Specialist Name Role Phone Unavailable Primary Care Provider Unavailabl e Encounter Details Date Type Department Care Team (Late st Contact Info) Description 03/09/2021 Transcribed Document [facility] [place] Family Medicine [address] [place] [address] ProviderHuber MD [address] [place], [place] [id number] Social History Tobacco Use Types Packs/Day Years [...] ProviderMD - 03/09/2021 7:33 AM CDT ED Triage Entered On: 03/09/2021 7:44 EDT Performed On: 03/09/2021 7:40 EDT by SWEETIE DALE, DOCK ASSOCIATE Triage Across the Room Chief Complaint : Pt brought in per EMS found in street passed out, easily arousable, pt present to ED diaphoretic, A&Ox2, relapsed on opioids 8 months ago, Triage Date/Time : 03/09/2021 7:40 EDT SWEETIE DALE RN - 03/09/2021 7:40 EDT DCP GENERIC CODE Tracking Acuity : 2 - Emergent Tracking Group : [facility] SWEETIE DALE RN - 03/09/2021 7:40 EDT Mode of Arrival : Ambulatory Transported to ED by : Ambulance/ALS EMS Service : [facility] To Room Via : Ambulate Accompanied By : Unaccompanied ED Vital Signs : Document Height & Weight : Document ED Allergies : Document ED Reason for Visit : Document SWEETIE DALE RN - 03/09/2021 7:40 EDT Infectious Disease History Does patient have symptoms of COVID-19? : No Has the Patient Been Tested for COVID-19 in the last 14 days? : Yes, Patient stated results Negative Does the Patient state known exposure to a COVID-19 positive case in the last 14 days? : No Patient Vaccinated for COVID-19 : Fully vaccinated SWEETIE DALE RN - 03/09/2021 7:40 EDT Infectious Disease Risk Screening Grid Cough < 2 wks of unknown origin : NO Cough > 2 weeks : NO Blood in Sputum : NO Fever or self-reported Fever : NO Rash of unknown origin : NO Headache : NO Stiff neck : NO Night Sweats : NO Unexplained Weight Loss : NO Diarrhea (3 episode per day) : NO SWEETIE DALE RN - 03/09/2021 7:40 EDT Physical contact outside [place] in the last 30 days : No Hospitalized in Foreign Country : No Infectious Disease History : Chicken pox/Shingles, Hepatitis A, Influenza INF Disease TB Screening Calc : 0 INF Disease Recent Travel Calc : 0 SWEETIE DALE RN - 03/09/2021 7:40 EDT Vital Signs ED Temperature Source : Temporal artery scanning Temperature Mode : Fahrenheit Temperature, Fahrenheit : 98.1 Deg F Clinical Temperature, C : 36.7 Deg C Oxygen Therapy Mode : Room air Peripheral Pulse Rate : 151 bpm (HI) Respiratory Rate : 18 Breaths/Min Systolic Blood Pressure : 139 mmHg Diastolic Blood Pressure : 72 mmHg Oxygen Saturation : 96 % SWEETIE DALE RN - 03/09/2021 7:40 EDT Allergy (As Of: 03/09/2021 07:44:28 EDT) Allergies (Active) penicillin Estimated Onset Date: Unspecified ; Created By: MOUSTAPHA SUN RN; Reaction Status: Active ; Category: Drug ; Substance: penicillin ; Type: Allergy ; Updated By: MOUSTAPHA SUN RN; Reviewed Date: 03/09/2021 7:42 EDT sulfa drugs Estimated Onset Date: Unspecified ; Created By: MOUSTAPHA SUN RN; Reaction Status: Active ; Category: Drug ; Substance: sulfa drugs ; Type: Allergy ; Updated By: MOUSTAPHA SUN RN; Reviewed Date: 03/09/2021 7:42 EDT Diagnosis Control ED (As Of: 03/09/2021 07:44:28 EDT) Diagnoses(Active) Altered mental status Date: 03/09/2021 ; Diagnosis Type: Reason For Visit ; Confirmation: Complaint of ; Clinical Dx: Altered mental status ; Classification: Medical ; Clinical Service: Emergency medicine ; Code: PNED ; Probability: 0 ; Diagnosis Code: [id number] ED Height and Weight Height Source : Stated Height Entry Format : [place] Height, Feet : 5 ft(Converted to: 152 cm, 60 Inch) Height, Inches : 10 Inch(Converted to: 0 ft 10 Inch, 25.40 cm) Clinical Height : 177.8 cm Weight Source, ED : Critical estimated dosing weight Weight Entry Format : [place] Weight, Pounds : 165 lb Clinical Dosing Weight : 75 kg Body Surface Area (BSA) : 1.93 m2 Body Mass Index : 23.7 kg/m2 [place] Body Weight (IBW) : 72.02 kg SWEETIE DALE RN - 03/09/2021 7:40 EDT documented in this encounter Plan of Treatment Not on file documented as of this encounter Visit Diagnoses Not on filedocumented in this encounter
--- OUTSIDE RECORDS SUMMARY | 2024-11-11 11:04 | XMS_ITS | Encounter Summary ---
Author Organization [employer] Address [address] [place] [address] Care Team Providers Care Track Layer Head Name Role Phone Unavailable Primary Care Provider Unavailabl e Encounter Details Date Type Department Care Team (Late st Contact Info) Description 01/06/2020 Transcribed Document [facility] [place] [facility] [place] [address] ProviderHuber MD [address] [place] [address] Social History Tobacco Use Types Packs/Day Years Used Date Smoking Tobacco: Never Assessed Sex and Gender Information Value Date Recorded Sex Assigned at Male 11/29/2021 11:59 AM CDT Legal Sex Male 11:59 AM CDT Gender Identity Male 11/29/2021 11:59 AM CDT Sexual Orientation Not on file documented as of this encounter Miscellaneous Notes * [employer] Conversion Note - Huber ProviderMD - 01/06/2020 6:05 AM CDT ED Discharge Entered On: 01/06/2020 6:05 EDT Performed On: 01/06/2020 6:05 EDT by Yarelis Kemp RN Discharge Process Patient Disposition : Discharge Personal Belongings With Patient : Yes Patient Education Completed : Yes Teaching Evaluation : Verbalizes understanding IV Discontinued : Not applicable Nursing Documentation Completed : Yes Yarelis Kemp RN - 01/06/2020 6:05 EDT ED Discharge Discharge To : Home with ambulatory/outpatient follow-up Mode Of Departure : Ambulatory Accompanied By : Unaccompanied Discharge Instructions Reviewed With, Opportunity For Questions Given : Patient Prescriptions Given to Patient : No Justo Yarelis, RN - 01/06/2020 6:05 EDT documented in this encounter Plan of Treatment Not on file documented as of this encounter Visit Diagnoses Not on filedocumented in this encounter
--- OUTSIDE RECORDS SUMMARY | 2024-11-11 11:04 | XMS_ITS | Encounter Summary ---
Author Organization [employer] Address [address] [place] [address] Care Team Providers Care Adult Secondary Education Instructor Name Role Phone Unavailable Primary Care Provider Unavailabl e Encounter Details Date Type Department Care Team (Late st Contact Info) Description 01/06/2020 Transcribed Document [facility] [place] Family Medicine [address] [place] [address] ProviderHuber MD [address] [place], [place] [address] Social History Tobacco Use Types Packs/Day Years [...] Huber ProviderMD - 01/06/2020 5:12 AM CDT [place] Suicide Severity Rating Scale (C-SSRS) Entered On: 01/06/2020 6:00 EDT Performed On: 01/06/2020 5:59 EDT by Yarelis Kemp RN [place] Suicide Severity Rating Scale (C-SSRS) CSSRS Past Month Wish to be : No CSSRS Past Month Suicidal Thoughts : No CSSRS Lifetime Suicide Behavior : No Suicide Severity Rating Score : 0 Suicide Severity Rating : No Additional Care Required at this time Yarelis Kemp RN - 01/06/2020 5:59 EDT documented in this encounter Plan of Treatment Not on file documented as of this encounter Visit Diagnoses Not on filedocumented in this encounter
--- OUTSIDE RECORDS SUMMARY | 2024-11-11 11:04 | XMS_ITS | Encounter Summary ---
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 Name Role Phone Unavailable Primary Care Provider Unavailabl e Encounter Details Date Type Department Care Team (Late st Contact Info) Description 03/09/2021 Transcribed Document [facility] [place] [facility] [place] [address] ProviderHuber MD [address], [place] [id number] Social History Tobacco Use Types Packs/Day Years [...] Huber ProviderMD - 03/09/2021 11:43 [place] [address] LISSA JUÁREZ DIAMOND :1980 Visit Time:03/09/2021 Your Visit Summary Your Care Team Primary Provider: DANIEL MOREIRA Secondary Provider: Your Diagnosis Abrasions of multiple sites Altered mental status Qwoequcczw-ukzhrhoyr-ynnmsvw (DPT) vaccination administered at current visit Head contusion Methamphetamine abuse Opiate abuse, episodic Medical Information You may obtain a copy [...] Appointments Follow Up with Follow up with primary care provider When Within 2 to 3 days Comments drink plenty of fluids today watch your abrasions for infection and return if problems Follow Up with NO PRIM DR SHARPE When Within 2 to 3 days Allergies penicillin sulfa drugs Immunizations This Visit tetanus/diphtheria/pertussis, acel(Tdap) 03/09/2021 Medications The home medications listed are only [...] This Visit (last charted value for your 03/09/2021 visit) Hematology 03/09/2021 7:41 AM WBC: 14.6 K/uL -- Normal range between ( 3.9 and 10.0 ) RBC: 4.99 Million/uL -- Normal range between ( 4.63 and 6.08 ) Hct: 49.1 % -- Normal range between ( 40.1 and 51.0 ) Hgb: 15.5 Gram/dL -- Normal range between ( 13.7 and 17.5 ) Platelet Count: 301 K/uL -- Normal range between ( 163 and 369 ) MCH: 31.1 pg -- Normal range between ( 25.6 and 32.2 ) MCHC: 31.6 Gram/dL -- Normal range between ( 32.3 and 36.5 ) MCV: 98.4 fL -- Normal range between ( 79.0 and 94.8 ) Slide Review: Technologist Eos %: 1.2 % -- Normal range between ( 1.0 and 7.0 ) [place]ley #: 2.79 K/uL -- Normal range between ( 0.24 and 0.82 ) Eos #: 0.18 K/uL -- Normal range between ( 0.04 and 0.54 ) [place] %: 19.1 % -- Normal range between ( 4.7 and 12.5 ) Baso %: 0.8 % -- Normal range between ( 0.0 and 1.0 ) Baso #: 0.11 K/uL -- Normal range between ( 0.01 and 0.08 ) RDW: 13.6 % -- Normal range between ( 11.6 and 14.4 ) Neut %: 36.4 % -- Normal range between ( 34.0 and 71.0 ) Neut #: 5.31 K/uL -- Normal range between ( 1.56 and 6.13 ) Lymph %: 41.8 % -- Normal range between ( 19.3 and 53.0 ) Lymph #: 6.11 K/uL -- Normal range between ( 1.18 and 3.74 ) MPV: 9.4 fL -- Normal range between ( 9.4 and 12.4 ) IG#: 0 x10(3)/uL IG%: 1 % -- Normal range between ( 0 and 1 ) General Chemistry 03/09/2021 8:07 AM Magnesium Level: 3.2 mg/dL -- Normal range between ( 1.5 and 2.4 ) 03/09/2021 7:41 AM Creatinine Level: 1.69 mg/dL -- Normal range between ( 0.70 and 1.30 ) Sodium Level: 140 mmol/L -- Normal range between ( 136 and 146 ) Potassium Level: 3.8 mmol/L -- Normal range between ( 3.5 and 5.1 ) Chloride Level: 102 mmol/L -- Normal range between ( 102 and 112 ) Carbon Dioxide Level: 8 mmol/L -- Normal range between ( 21 and 32 ) Anion Gap: 34 -- Normal range between ( 9 and 20 ) Bilirubin Total: 0.6 mg/dL -- Normal range between ( 0.2 and 1.3 ) A/G Ratio: 1.1 -- Normal range between ( 1.1 and 2.5 ) ALT: 29 Units/Liter -- Normal range between ( 12 and 78 ) AST: 32 Units/Liter -- Normal range between ( 5 and 37 ) Globulin: 4.0 Gram/dL -- Normal range between ( 1.5 and 4.5 ) Alk Phos: 91 Units/Liter -- Normal range between ( 27 and 136 ) Bun/Creatinine: 10.7 -- Normal range between ( 8.0 and 20.0 ) Calcium Level: 9.4 mg/dL -- Normal range between ( 8.5 and 10.1 ) eGFR : 55 mL/min/1.73m2 eGFR NonAfrican: 45 mL/min/1.73m2 Glucose Level: 184 mg/dL -- Normal range between ( 74 and 106 ) Blood Urea Nitrogen: 18 mg/dL -- Normal range between ( 7 and 22 ) Protein Total: 8.5 Gram/dL -- Normal range between ( 6.4 and 8.2 ) Albumin Level: 4.5 Gram/dL -- Normal range between ( 3.4 and 5.0 ) Cardiac Specific Markers 03/09/2021 8:07 AM Troponin I Ultra: <0.015 ng/mL -- Normal range between ( 0.015 and 0.045 ) Toxicology 03/09/2021 8:48 AM Alcohol: <3 mg/dL 03/09/2021 7:52 AM UDS Amp: Positive UDS Dawn: Negative UDS Benzo: Negative UDS James: Negative UDS Meth: Negative UDS Opi: Negative UDS Oxy: Negative UDS PCP: Negative UDS TCA: Negative UDS THC: Negative Buprenorphine Screen, Urine: Positive Meperidine Screen, Urine: Negative Tramadol Screen, Urine: Negative Heroin Metab (6AM) by LC-MS/MS, Urine: Negative Carisoprodol Screen, Urine: Negative SpGravity, Urine: 1.031 Propoxyphene, Urine: Negative UDS pH: 6.1 Fentanyl, Urine: Positive UDS Creatinine, Toxicology: 331.9 mg/dL Computed Tomography 03/09/2021 8:[address] Head WO: CT Head WO 03/09/2021 8:[address] Spine Cervical WO: CT Spine Cervical WO Diagnostic Radiology 03/09/2021 8:07 AM CR Chest 1 Vw Portable: CR Chest 1 Vw Portable Education Materials Opioid Use Disorder Opioid use disorder is a condition in which opioids are used for reasons other than medical care. The person may use them even though taking them hurts the person's health and well-being. These drugs are powerful substances that relieve pain. Opioids include drugs such as heroin as well as prescription medicines for pain, such as: ??? Codeine. ??? Morphine. ??? Hydrocodone. ??? Oxycodone. ??? Fentanyl. Taking prescribed opioids regularly can lead to dependence, especially if you take them in larger amounts or more often than they should be taken. Opioid use disorder can lead to problems with mental and physical health, including: ??? Depression or anxiety. ??? Severe constipation. ??? Malnutrition and weight loss. ??? Sleep problems. ??? Diseases caused by infections, such as hepatitis or HIV. ??? Sexual problems. Opioid use disorder can be dangerous. It increases the risk of suicide and can lead to an overdose that can be life-threatening. What are the causes? This condition is caused by taking opioids. Taking opioids again and again results in changes in the brain that make it hard to control opioid use. Many people develop this condition because they like the way they feel when they take opioids or because they get addicted to them. What increases the risk? This condition is more likely to develop in people who: ??? Have a family history of opioid use disorder. ??? Misuse other drugs. ??? Have a mental illness, such as depression, post-traumatic stress disorder, or antisocial personality disorder. ??? Begin use at an early age, such as during their teenage years. What are the signs or symptoms? Symptoms of this condition include: ??? Taking opioids in larger amounts or for longer periods than you want to. ??? Being unable to slow down or stop your use of the drug. ??? Spending an abnormal amount of time getting opioids, using them, or recovering from their effects. ??? Craving opioids. ??? Using opioids in a way that interferes with work, school, social activities, and personal relationships. ??? Giving up or cutting down on important life activities because of opioid use. ??? Using opioids when it is dangerous, such as when driving a car. ??? Continuing to use the drug even after it has led to problems such as: ? Physical or mental health problems. ? Legal or financial troubles. ? Job loss. ? Broken relationships. ??? Needing more and more of an opioid to get the same effect (building up a tolerance). ??? Experiencing unpleasant symptoms if you do not use the opioid (withdrawal). Some symptoms of withdrawal include: ? Depression, anxiety, or feeling irritable. ? Nausea or vomiting. ? Muscle aches or spasms. ? Watery eyes. ? Trouble sleeping. ? Yawning. How is this diagnosed? This condition is diagnosed based on: ??? A physical exam. ??? Your history of opioid use. ??? Your symptoms. This includes: ? How opioid use affects your life. ? Changes in personality, behaviors, and mood. ? Having at least two symptoms of opioid use disorder within a 12-month period. ? Health issues related to using opioids. ??? Blood or urine tests to screen for drugs. How is this treated? The first goal of treatment is to stop your use of opioids. This must be done safely and may involve taking medicines to lessen withdrawal symptoms. Treatment may also involve: ??? Taking part in group and individual counseling from mental health providers who have experience with substance use disorder. ??? Staying at a residential treatment center for several days or weeks. ??? Attending daily counseling sessions at a treatment center. ??? Taking medicines as told by your health care provider that: ? Ease symptoms and prevent complications during withdrawal. ? Block cravings and block the good feeling that you get from using opioids. ? Treat other mental health issues, such as depression or anxiety. ? Reduce agitation. ??? Participating in a support group to share your experience with others who are going through the same thing. ??? Using opioid maintenance treatment. This involves taking certain kinds of opioid medicines. These medicines satisfy cravings but are safer than opioids that are commonly misused. Recovery can be a long process. Some people who undergo treatment start using opioids again after stopping (relapse). If you relapse, it does not mean that treatment will not work. Follow these instructions at home: Medicines ??? Take dicq-scp-ozesori and prescription medicines only as told by your health care provider. ??? Check with your health care provider before starting any new medicines, herbs, or supplements. General instructions ??? Do not use any drugs or alcohol. ??? Avoid people and activities that trigger your use of opioids. ??? Learn and practice techniques for managing stress. ??? Have a plan for vulnerable moments. Get phone numbers of those who are willing to help and who are committed to your recovery. ??? Attend support groups regularly. These groups provide emotional support, advice, and guidance. ??? Keep all follow-up visits as told by your health care provider. This is important. This includes continuing to work with therapists and support groups. Where to find more information ??? [place] on Drug Abuse: drugabuse.gov ??? Substance Abuse and Mental Health Services Administration: samhsa.gov ??? Narcotics Anonymous: na.org Contact a health care provider if: ??? You cannot take your medicines as told. ??? Your symptoms get worse. ??? You have a relapse. Get help right away if: ??? You may have taken too much of an opioid (overdosed). Common symptoms of an overdose include: ? Sleepiness or difficulty waking from sleep. ? Decrease in attention. ? Confusion. ? Slurred speech. ? Slowed breathing and a slow pulse (bradycardia). ? Nausea and vomiting. ? Abnormally small pupils. ??? You have serious thoughts about hurting yourself or others. These symptoms may represent a serious problem that is an emergency. Do not wait to see if the symptoms will go away. Get medical help right away. Call your local emergency services (911 in the [place] Do not drive yourself to the hospital. If you were prescribed a drug (naloxone) that reverses the effects of an opioid overdose, a friend, family member, or emergency services provider can administer the drug in an emergency. If you ever feel like you may [...] open 24 hours a day. Summary ??? Opioid use disorder is a condition in which opioids are used for reasons other than medical care. ??? Opioid use disorder can be dangerous. It can lead to various mental and physical problems, and an opioid overdose can be life-threatening. ??? The first goal of treatment is to stop your use of opioids. This must be done safely and may involve taking medicines to lessen withdrawal symptoms. This information is not intended to replace advice given to you by your health care provider. Make sure you discuss any questions you have with your health care provider. Document Revised: 10/22/2019 Document Reviewed: 10/22/2019 [employer] Patient Education ?? 2020 [employer]. Amphetamines Use Disorder Amphetamines use disorder is a condition in which the use of amphetamines disrupts daily life. Amphetamines are one type of drug in a group of powerful drugs known as stimulants. Common names for amphetamines include speed and crank. Amphetamines have many medical uses, but these drugs are often misused because of their effects. These effects include: ??? A feeling of extreme pleasure (euphoria). ??? Alertness or increased attention. ??? A high energy level. ??? Loss of appetite. Misuse of amphetamines can lead to a substance use disorder and can cause problems with physical and mental health, including: ??? Unplanned weight loss. ??? High blood pressure and heart rate. ??? Diseases caused by infections, such as hepatitis or HIV. ??? Anxiety, depression, mood swings, or sleep problems. ??? Violent behavior. Amphetamines use disorder can be dangerous. Because amphetamines increase your blood pressure and heart rate, misuse can lead to a heart attack or stroke. Amphetamines can also make your heart rate irregular, cause seizures, and raise your body temperature. The problems that these drugs cause can be life-threatening. What are the causes? This condition is caused by misusing amphetamines for a period of time, such as by taking them for reasons other than to treat a diagnosed problem. Many people start using amphetamines because these drugs make them feel good. Over time, they get addicted to them. What increases the risk? This condition is more likely to develop in people who: ??? Misuse other drugs or alcohol. ??? Have problems with mood or behavior. ??? Have a mental illness, such as depression, post-traumatic stress disorder, or antisocial personality disorder. ??? Begin use at an early age, such as during their teenage years. What are the signs or symptoms? Symptoms of this condition include: ??? Using amphetamines for longer periods of time or in higher amounts than you want to. ??? Being unable to slow down or stop your use of the drug. ??? Craving amphetamines. ??? Spending an abnormal amount of time getting amphetamines, using them, or recovering from their effects. ??? Using amphetamines in a way that interferes with work, school, social activities, or personal relationships. ??? Giving up or cutting down on important life activities because of amphetamine use. ??? Using amphetamines when it is dangerous, such as when driving a car. ??? Continuing to use the drug even after it has led to problems such as: ? Physical or mental health problems. ? Legal or financial troubles. ? Job loss. ? Broken relationships. ??? Needing more and more of the drug to get the same effect (building up a tolerance). ??? Experiencing unpleasant symptoms if you do not use the amphetamine (withdrawal). Some symptoms of withdrawal include: ? Fast or irregular heartbeats (palpitations). ? Chest pain. ? Nausea, vomiting, diarrhea, or abdominal cramping. ? Restlessness and mood changes. ? Tiredness (fatigue). ? Sleep changes or bad dreams. ? Increased appetite. How is this diagnosed? This condition is diagnosed based on: ??? A physical exam. ??? Your history of amphetamine use. ??? Your symptoms. This includes: ? How amphetamine use affects your life. ? Changes in personality, behaviors, and mood. ? Having at least two symptoms of amphetamines use disorder within a 12-month period. How severe the condition is depends on how many symptoms you have. ? Health issues related to using amphetamines. ??? Blood or urine tests to screen for drugs. How is this treated? The first goal of treatment is to stop your use of amphetamines. This must be done safely and may involve taking medicines to lessen withdrawal symptoms. Treatment may also involve: ??? Taking part in group and individual counseling from mental health providers who have experience with substance use disorder. ??? Staying at a residential treatment center for several days or weeks. ??? Attending daily counseling sessions at a treatment center. ??? Taking medicines as told by your health care provider that: ? Ease symptoms and prevent complications during withdrawal. ? Block cravings and block the good feeling that you get from using amphetamines. ? Treat other mental health issues, such as depression or anxiety. ? Reduce agitation. ??? Participating in a support group to share your experience with others who are going through the same thing. Recovery can be a long process. Many people who undergo treatment start using the drug again after stopping (relapse). If you relapse, it does not mean that treatment will not work. Follow these instructions at home: Medicines ??? Take mvwt-hll-bvfzzjj and prescription medicines only as told by your health care provider. ??? Check with your health care provider before starting any new medicines, herbs, or supplements. General instructions ??? Do not use any drugs or alcohol. ??? Avoid people and activities that trigger your use of amphetamines. ??? Learn and practice techniques for managing stress. ??? Have a plan for vulnerable moments. Get phone numbers of those who are willing to help and who are committed to your recovery. ??? Attend support groups regularly. These groups provide emotional support, advice, and guidance. ??? Do not use any products that contain nicotine or tobacco, such as cigarettes, e-cigarettes, and chewing tobacco. If you need help quitting, ask your health care provider. ??? Keep all follow-up visits as told by your health care provider. This is important. This includes continuing to work with therapists and support groups. Where to find more information ??? [place] on Drug Abuse: drugabuse.gov ??? Substance Abuse and Mental Health Services Administration: samhsa.gov ??? Narcotics Anonymous: na.org Contact a health care provider if: ??? Your symptoms get worse. ??? You use amphetamines again. ??? You cannot take medicines as told. Get help right away if: ??? You have serious thoughts about hurting yourself or others. ??? You may have taken too much of an amphetamine (overdosed). Symptoms of an overdose include: ? Chest pain. ? A seizure. ??? You have any symptoms of a stroke. BE FAST is an easy way to remember the main warning signs of a stroke: ? B - Balance. Signs are dizziness, sudden trouble walking, or loss of balance. ? E - Eyes. Signs are trouble seeing or a sudden change in vision. ? F - Face. Signs are sudden weakness or numbness of the face, or the face or eyelid drooping on one side. ? A - Arms. Signs are weakness or numbness in an arm. This happens suddenly and usually on one side of the body. ? S - Speech. Signs are sudden trouble speaking, slurred speech, or trouble understanding what people say. ? T - Time. Time to call emergency services. Write down what time symptoms started. These symptoms may represent a serious problem that is an emergency. Do not wait to see if the symptoms will go away. Get medical help right away. Call your local emergency services (911 in the [place] Do not drive yourself to the hospital. If you ever feel like you may [...] open 24 hours a day. Summary ??? Amphetamines use disorder is a condition in which the use of amphetamines disrupts daily life. ??? Amphetamines are one type of drug in a group of powerful drugs known as stimulants. ??? Recovery can be a long process. If you have a relapse, that does not mean that treatment will not work. ??? Avoid people and activities that trigger your use of amphetamines, and be sure to attend support groups regularly. This information is not intended to replace advice given to you by your health care provider. Make sure you discuss any questions you have with your health care provider. Document Revised: 10/22/2019 Document Reviewed: 10/22/2019 [employer] Patient Education ?? 2020 [employer]. Emergency Awareness and Preventative Care STROKE is [...] Assistance with quitting is available by contacting 7-581-VRYT-NOW. This is a free resource providing counseling, [...] emergency, radiology, or pathology physicians. Patient Name:LISSA JUÁREZ I have received this information and was given the opportunity to ask questions. Patient/Ccie Name: Patient/Ccie Signature: Relationship to Patient: Clinician/Hospital Ccie Signature: Please Provide a Telephone Number Where You Can Be Reached: Is it Permissible To Leave a Message? Date: documented in this encounter Plan of Treatment Not on file documented as of this encounter Visit Diagnoses Not on filedocumented in this encounter
--- OUTSIDE RECORDS SUMMARY | 2024-11-11 11:04 | XMS_ITS | Encounter Summary ---
Author Organization [employer] Address [address] [place] [address] Care Team Providers Care Jewelry Facer Name Role Phone Unavailable Primary Care Provider Unavailabl e Encounter Details Date Type Department Care Team (Late st Contact Info) Description 01/06/2020 Transcribed Document [facility] [place] [place] [address] ProviderHuber MD [address] [place] [address] [id number] Social History Tobacco Use Types Packs/Day Years Used Date Smoking Tobacco: Never Assessed Sex and Gender Information Value Date Recorded Sex Assigned at Male 11/29/2021 11:59 AM CDT Legal Sex Male 11:59 AM CDT Gender Identity Male 11/29/2021 11:59 AM CDT Sexual Orientation Not on file documented as of this encounter Miscellaneous Notes * Cerner Conversion Note - Huber ProviderMD - 01/06/2020 5:53 AM CDT Patient: LISSA JUÁREZ Age: 39 years Sex: Male : 1980 Associated Diagnoses: Encounter for medical screening examination; Insomnia Author: KEITH REIS MD Basic Information History source: Patient. Arrival mode: Ambulance. History limitation: None. Additional information: Chief Complaint from Nursing Triage Note : Chief Complaint 01/06/2020 5:32 EDT Chief Complaint via ems requesting detox. 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 Denies SI/HI. . History of Present Illness This is a 39-year-old male with a past medical history significant for alcoholism who presents to the emergency department for insomnia after methamphetamine use 2 days ago. He reports having been in a sober living house for approximately 5 weeks, but continued to drink there stating that the general adjuster there helped him to avoid drug and alcohol testing so that he was still able to drink while in the home. Because of this, he reports having angered many of the other residents who've been started to room her about him which ultimately led to him calling the police tonight because of fear that he was going to be kidnapped . When the police arrived, apparently the ambulance also arrived and brought him here. He has been one week without alcohol use, no seizure disorder. He does not regularly use methamphetamine and used it 2 days ago 1 time in order to avoid alcohol withdrawal symptoms. No SI/HI. He felt like coming here that he might be able to stay the night and get some psychiatric assistance. Review of Systems Additional review of systems information: 10 point review of systems reviewed and negative except as stated in history of present illness . Health Status Allergies: Allergic Reactions (Selected) Severity Not Documented Penicillin- No reactions were documented. Sulfa drugs- No reactions were documented.. Medications: (Selected) , per nurse's notes. Immunizations: Per nurse's notes. Past Medical/ Family/ Social History Medical history Reviewed as documented in chart. Surgical history: No active procedure history items have been selected or recorded., Reviewed as documented in chart. Family history: No family history items have been selected or recorded., Reviewed as documented in chart. Social history: Social & Psychosocial Habits No Data Available , Reviewed as documented in chart. Problem list: No qualifying data available , per nurse's notes. Physical Examination Vital Signs Vital Signs/Vital Measures 01/06/2020 5:32 EDT Systolic Blood Pressure 132 mmHg Diastolic Blood Pressure 74 mmHg Temperature Source Oral Temperature Mode Fahrenheit Temperature, Fahrenheit 98.9 Deg F Clinical Temperature, C 37.2 Deg C Peripheral Pulse Rate 112 bpm HI Respiratory Rate 18 Breaths/Min Oxygen Saturation 97 % Oxygen Therapy Mode Room air . Per nurse's notes. Measurements 01/06/2020 5:32 EDT Height Source Stated Height Entry Format [place] Height/Length, SPANISH (ft) 5 ft Height/Length SPANISH 9 Inch CLINICALHEIGHT 175.26 cm [place] Body Weight 69.73 kg Weight Source, ED Critical estimated dosing weight Weight Entry Format [place] Weight American lb 190 lb CLINICALWEIGHT 86.36 kg Body Surface Area (BSA) 2.02 m2 Body Mass Index 28.1 kg/m2 HI . Oxygen Saturation 01/06/2020 5:32 EDT Oxygen Saturation 97 % . General: Alert, no acute distress. Skin: Warm, dry. Head: Normocephalic. Neck: Supple. Ears, nose, mouth and throat: Oral mucosa moist. Cardiovascular: Regular rate and rhythm, No murmur. Respiratory: Lungs are clear to auscultation, respirations are non-labored, breath sounds are equal. Gastrointestinal: Soft, Nontender, Non distended. Neurological: Alert and oriented to person, place, time, and situation, normal speech observed, normal coordination observed. Psychiatric: Cooperative. Medical Decision Making Notes: Patient here one week outside of his last alcohol use, is alert and oriented in no acute distress. No need for acute alcohol withdrawal. He last used methamphetamine 2 days ago and has no confusion. No need for acute methamphetamine withdrawal program. I've referred him to outpatient follow-up. Given other resources as well for mental health and discharged home.. Impression and Plan Diagnosis Encounter for medical screening examination - Discharge, Medical Insomnia - Discharge, Medical Plan Condition: Stable. Disposition: Discharged Admit/Transfer/Discharge: Discharge (Order): Start: 01/06/2020 5:55 EDT, Discharge to: Home. Patient was given the following educational materials: Insomnia, Stimulant Use Disorder-Methamphetamines. Follow up with: ; Follow up with [facility] at: [address] [facility], [address] [place] [address] P. [phone] Within in AM. Counseled: Patient, Regarding diagnosis, Regarding diagnostic results, Regarding treatment plan, Patient indicated understanding of instructions. documented in this encounter Plan of Treatment Not on file documented as of this encounter Visit Diagnoses Not on filedocumented in this encounter
== END 2024-11-11 23:59 | disposition home or self-care (01) ==
LOC: RAD 11:01
PROVIDERS: PCP Family Medicine; Visit Provider Physician Assistant
DX: M25.521 Pain in right elbow (principal)
CPT/HCPCS: 73080